=== PATIENT | male | born 1965 | race Caucasian/White ===

== ENCOUNTER → 2016-12-20 | Outpatient (CLI) | payer MEDICARE, MEDICAID, OTHER ==
[2016-12-20 10:37] LABS: BASO % 0.5 % (0.0-1.0); EOS # 0.2 K/mm3 (0.0-0.50); EOS % 5.6 % (0.0-3.0); LYMPH # 0.9 K/mm3 (1.5-4.5); LYMPH % 22.9 % (24.0-44.0); MEAN CORPUSCULAR HEMOGLOBIN 23.8 pg (27.0-33.0); MEAN CORPUSCULAR HGB CONC 31.7 g/dl (32.0-36.5); MEAN CORPUSCULAR VOLUME 75.1 fl (80.0-96.0); MONO # 0.2 K/mm3 (0.0-0.8); MONO % 5.1 % (0.0-5.0); NEUTROPHILS # 2.4 K/mm3 (1.8-7.7); NEUTROPHILS % 62.7 % (36.0-66.0); RED CELL DISTRIBUTION WIDTH 15.5 % (11.5-14.5); WHITE BLOOD COUNT 3.9 K/mm3 (4.0-10.0)
[2016-12-20 11:00] LABS: ALBUMIN 3.6 GM/DL (3.2-5.2); ALBUMIN/GLOBULIN RATIO 1.29 (1.00-1.93); ALKALINE PHOSPHATASE 70 U/L (45-117); ALT/SGPT 23 U/L (12-78); ANION GAP 7 MEQ/L (8-16); AST/SGOT 12 U/L (15-37); BILIRUBIN,TOTAL 0.4 MG/DL (0.2-1.0); BLOOD UREA NITROGEN 17 MG/DL (7-18); CALCIUM LEVEL 8.1 MG/DL (8.5-10.1); CARBON DIOXIDE LEVEL 25 MEQ/L (21-32); CHLORIDE LEVEL 108 MEQ/L (98-107); CHOLESTEROL LEVEL 116 MG/DL (<200); CREATININE FOR GFR 0.82 MG/DL (0.70-1.30); FREE T4 1.24 NG/DL (0.76-1.46); GLOMERULAR FILTRATION RATE > 60.0 (>56); GLUCOSE, FASTING 118 MG/DL (70-105); POTASSIUM SERUM 4.1 MEQ/L (3.5-5.1); SODIUM LEVEL 140 MEQ/L (136-145); TOTAL PROTEIN 6.4 GM/DL (6.4-8.2); TRIGLYCERIDES LEVEL 86 MG/DL (<150)
== END ==
LOC: M LAB 09:20
PROVIDERS: ATTEND Nurse Practitioner Adult Health
DX: D53.9 Nutritional anemia, unspecified (principal); Z79.899 Other long term (current) drug therapy; D72.819 Decreased white blood cell count, unspecified; E55.9 Vitamin D deficiency, unspecified; E78.5 Hyperlipidemia, unspecified

== ENCOUNTER → 2017-04-08 | Outpatient (CLI) | payer MEDICARE, MEDICAID ==
[2017-04-08 11:12] LABS: BASO # 0.1 10^3/uL (0.0-0.2); BASO % 0.9 % (0.0-1.0); EOS # 0.4 10^3/uL (0.0-0.50); EOS % 7.2 % (0.0-3.0); IMMATURE GRANULOCYTE % 0.4 % (0-0); LYMPH # 1.3 10^3/uL (1.5-4.5); LYMPH % 23.9 % (24.0-44.0); MEAN CORPUSCULAR HEMOGLOBIN 24.6 pg (27.0-33.0); MEAN CORPUSCULAR HGB CONC 31.3 g/dl (32.0-36.5); MEAN CORPUSCULAR VOLUME 78.3 fl (80.0-96.0); MONO # 0.3 10^3/uL (0.0-0.8); MONO % 6.1 % (0.0-5.0); NEUTROPHILS # 3.3 10^3/uL (1.8-7.7); NEUTROPHILS % 61.5 % (36.0-66.0); PLATELET COUNT, AUTOMATED 211 10^3/uL (150-450); RED CELL DISTRIBUTION WIDTH 14.7 % (11.5-14.5); WHITE BLOOD COUNT 5.3 10^3/uL (4.0-10.0)
[2017-04-08 11:46] LABS: ALBUMIN 3.7 GM/DL (3.2-5.2); ALBUMIN/GLOBULIN RATIO 1.23 (1.00-1.93); ALKALINE PHOSPHATASE 68 U/L (45-117); ALT/SGPT 33 U/L (12-78); ANION GAP 6 MEQ/L (8-16); AST/SGOT 21 U/L (7-37); BILIRUBIN,TOTAL 0.3 MG/DL (0.2-1.0); BLOOD UREA NITROGEN 15 MG/DL (7-18); CALCIUM LEVEL 9.2 MG/DL (8.5-10.1); CARBON DIOXIDE LEVEL 29 MEQ/L (21-32); CHLORIDE LEVEL 105 MEQ/L (98-107); CHOLESTEROL LEVEL 144 MG/DL (<200); CREATININE FOR GFR 0.77 MG/DL (0.70-1.30); FREE T4 1.15 NG/DL (0.76-1.46); GLOMERULAR FILTRATION RATE > 60.0 (>56); GLUCOSE, FASTING 89 MG/DL (70-105); POTASSIUM SERUM 4.6 MEQ/L (3.5-5.1); SODIUM LEVEL 140 MEQ/L (136-145); TOTAL PROTEIN 6.7 GM/DL (6.4-8.2); TRIGLYCERIDES LEVEL 113 MG/DL (<150)
== END ==
LOC: M LAB 10:22
PROVIDERS: ATTEND Nurse Practitioner Adult Health
DX: E78.5 Hyperlipidemia, unspecified (principal); Z79.899 Other long term (current) drug therapy; E55.9 Vitamin D deficiency, unspecified; F39 Unspecified mood [affective] disorder; D72.819 Decreased white blood cell count, unspecified; D53.9 Nutritional anemia, unspecified

== ENCOUNTER → 2017-11-14 | Outpatient (CLI) | payer MEDICARE ==
[2017-11-14 10:10] LABS: BASO # 0.1 10^3/uL (0.0-0.2); BASO % 1.2 % (0.0-1.0); EOS # 0.3 10^3/uL (0.0-0.50); EOS % 6.3 % (0.0-3.0); HEMATOCRIT 32.1 % (42.0-52.0); HEMOGLOBIN 9.4 g/dl (13.5-17.5); IMMATURE GRANULOCYTE % 0.6 % (0-3.0); LYMPH # 0.9 10^3/uL (1.5-4.5); LYMPH % 18.1 % (24.0-44.0); MEAN CORPUSCULAR HEMOGLOBIN 20.8 pg (27.0-33.0); MEAN CORPUSCULAR HGB CONC 29.3 g/dl (32.0-36.5); MONO # 0.3 10^3/uL (0.0-0.8); MONO % 6.9 % (0.0-5.0); NEUTROPHILS # 3.3 10^3/uL (1.8-7.7); NEUTROPHILS % 66.9 % (36.0-66.0); PLATELET COUNT, AUTOMATED 197 10^3/uL (150-450); RED BLOOD COUNT 4.52 10^6/uL (4.30-6.10); RED CELL DISTRIBUTION WIDTH 16.1 % (11.5-14.5); WHITE BLOOD COUNT 4.9 10^3/uL (4.0-10.0)
[2017-11-14 10:40] LABS: ESTIMATED AVERAGE GLUCOSE 103 MG/DL (60-110); HEMOGLOBIN A1c 5.2 %
[2017-11-14 10:55] LABS: TOTAL 25(OH) VITAMIN D 44.6 NG/ML (30.0-100.0)
[2017-11-14 10:59] LABS: ALBUMIN 3.8 GM/DL (3.2-5.2); ALBUMIN/GLOBULIN RATIO 1.27 (1.00-1.93); ALKALINE PHOSPHATASE 67 U/L (45-117); ALT/SGPT 22 U/L (12-78); ANION GAP 8 MEQ/L (8-16); AST/SGOT 15 U/L (7-37); BILIRUBIN,TOTAL 0.3 MG/DL (0.2-1.0); BLOOD UREA NITROGEN 10 MG/DL (7-18); CALCIUM LEVEL 8.5 MG/DL (8.5-10.1); CARBON DIOXIDE LEVEL 29 MEQ/L (21-32); CHLORIDE LEVEL 105 MEQ/L (98-107); CHOLESTEROL LEVEL 116 MG/DL (<200); CHOLESTEROL RISK RATIO 2.761 (<5); FREE T4 1.22 NG/DL (0.76-1.46); GLOMERULAR FILTRATION RATE > 60.0 (>56); GLUCOSE, FASTING 102 MG/DL (70-100); HDL CHOLESTEROL 42 MG/DL (>40); LDL CHOLESTEROL 53.8 MG/DL (<100); NON-HDL-C 74 MG/DL; POTASSIUM SERUM 4.4 MEQ/L (3.5-5.1); SODIUM LEVEL 142 MEQ/L (136-145); TOTAL PROTEIN 6.8 GM/DL (6.4-8.2); TRIGLYCERIDES LEVEL 101 MG/DL (<150)
== END ==
LOC: M LAB 09:19
DX: E78.5 Hyperlipidemia, unspecified (principal); Z79.899 Other long term (current) drug therapy
CPT/HCPCS: 84443

== ENCOUNTER 2018-03-28 02:15 | Emergency (ER) | payer MEDICARE, MEDICAID | END 2018-03-28 03:49 | disposition home or self-care (01) | LOC: M ED 02:15 | DX: R29.6 Repeated falls (principal); F33.9 Major depressive disorder, recurrent, unspecified; Z88.5 Allergy status to narcotic agent; Z79.899 Other long term (current) drug therapy | CPT/HCPCS: 99284 ==

== ENCOUNTER 2018-04-06 20:01 | Emergency (ER) | payer MEDICARE, MEDICAID ==
[2018-04-06] MEDS: NORCO, ANEXSIA 5/325MG TABLET (HYDROcodone/ACETAMINOPHEN) PO (21:06)
== END 2018-04-06 22:09 | disposition home or self-care (01) ==
LOC: M ED 20:01
DX: M25.362 Other instability, left knee (principal)
CPT/HCPCS: 73564

== ENCOUNTER → 2018-04-10 | Outpatient (CLI) | payer MEDICARE, MEDICAID ==
[2018-04-10 11:26] LABS: BASO # 0.1 10^3/uL (0.0-0.2); EOS # 0.5 10^3/uL (0.0-0.50); EOS % 8.1 % (0.0-3.0); HEMATOCRIT 35.2 % (42.0-52.0); IMMATURE GRANULOCYTE % 0.3 % (0-3.0); LYMPH # 1.1 10^3/uL (1.5-4.5); LYMPH % 18.9 % (24.0-44.0); MEAN CORPUSCULAR HEMOGLOBIN 19.9 pg (27.0-33.0); MEAN CORPUSCULAR HGB CONC 28.4 g/dl (32.0-36.5); MONO # 0.5 10^3/uL (0.0-0.8); MONO % 7.7 % (0.0-5.0); NEUTROPHILS # 3.7 10^3/uL (1.8-7.7); PLATELET COUNT, AUTOMATED 194 10^3/uL (150-450); RED BLOOD COUNT 5.03 10^6/uL (4.30-6.10); WHITE BLOOD COUNT 5.8 10^3/uL (4.0-10.0)
[2018-04-10 14:26] LABS: ALBUMIN 3.8 GM/DL (3.2-5.2); ALBUMIN/GLOBULIN RATIO 1.31 (1.00-1.93); ALKALINE PHOSPHATASE 73 U/L (45-117); ALT/SGPT 31 U/L (12-78); ANION GAP 4 MEQ/L (8-16); AST/SGOT 18 U/L (7-37); BILIRUBIN,TOTAL 0.3 MG/DL (0.2-1.0); BLOOD UREA NITROGEN 14 MG/DL (7-18); CARBON DIOXIDE LEVEL 29 MEQ/L (21-32); CHLORIDE LEVEL 106 MEQ/L (98-107); CHOLESTEROL LEVEL 122 MG/DL (<200); CHOLESTEROL RISK RATIO 2.711 (<5); CREATININE FOR GFR 0.89 MG/DL (0.70-1.30); FREE T4 1.09 NG/DL (0.76-1.46); GLOMERULAR FILTRATION RATE > 60.0 (>56); GLUCOSE, FASTING 94 MG/DL (70-100); HDL CHOLESTEROL 45 MG/DL (>40); LDL CHOLESTEROL 58 MG/DL (<100); NON-HDL-C 77 MG/DL; POTASSIUM SERUM 4.8 MEQ/L (3.5-5.1); PROSTATIC SPECIFIC AG MONITOR 7.8 NG/ML (< 4.0); SODIUM LEVEL 139 MEQ/L (136-145); TOTAL PROTEIN 6.7 GM/DL (6.4-8.2); TRIGLYCERIDES LEVEL 97 MG/DL (<150)
== END ==
LOC: M LAB 10:41
DX: R53.83 Other fatigue (principal); E78.2 Mixed hyperlipidemia
CPT/HCPCS: 84443

== ENCOUNTER 2018-05-19 07:26 | Emergency (ER) | payer MEDICARE, MEDICAID ==
[~2018-05-19] VITALS: Ht 185.4 cm; Wt 81.8 kg
[~2018-05-19 07:26] MED LIST: FLOM0.4C39 PO; GABA-1171 PO; GEMF600T5 PO; LAMI1TAB7 PO; NORCOTAB PO; PRAV80TA2 PO; TRAZ-163 PO
[2018-05-19] MEDS ORDERED: KETOROLAC 30 MG/ML VIAL (J1885) IV ONE (07:45)
--- NOTE | 2018-05-19 08:29 | REP ---
AP view of the pelvis: Single view. History: Injury in a fall. Findings: There are old post-traumatic changes in the left mohan pelvis, left sacrum, and left L5 transverse process. These findings are unchanged from prior radiographs of January 16, 2009. There are three metallic pins in the left hip also unchanged. No acute pelvic or sacral fracture is seen. Impression: Old post-traumatic changes on the left. No acute bony abnormality. Electronically Signed by Keven Qiu MD 05/19/2018 08:21 A
--- NOTE | 2018-05-19 08:41 | REP ---
Bilateral hip series: Four views. History: Injury in a fall. Findings: AP and frog-leg views of each hip are obtained. Comparison views are from July 08, 2014. Findings: There is old post-traumatic deformity involving the superior and inferior pubic rami on the left. The patient is status post screw plate fixation for femoral shaft fracture and there are three pins in the femoral neck on the left from previous trauma. No acute fracture is seen on the left. There is osteoarthritic spurring at the femoroacetabular articulation. There are accessory ossicles at the superior margin of the left hip joint. These findings are chronic. On the right, there is no evidence of hip fracture or hemipelvic fracture. Impression: Old post-traumatic changes on the left. No acute bony abnormality. Electronically Signed by Keven Qiu MD 05/19/2018 10:55 A
--- NOTE | 2018-05-19 08:42 | REP ---
Lumbar spine series: Five views. History: Injury in a fall. Findings: Five views of the lumbar spine show evidence of old healed left sacral and left transverse process L5 fractures unchanged from prior studies. Lumbar vertebral body heights are preserved. Alignment is normal. Disc spaces are maintained. No acute fracture is visible. Psoas margins are symmetric. SI joints are intact. Impression: Old left sacral and left L5 transverse process fractures. No acute bony abnormality. Electronically Signed by Keven Qiu MD 05/19/2018 10:55 A
[2018-05-19 08:49] LABS: BASO % 0.5 % (0.0-1.0); EOS # 0.5 10^3/uL (0.0-0.50); EOS % 6.1 % (0.0-3.0); HEMATOCRIT 30.7 % (42.0-52.0); HEMOGLOBIN 8.9 g/dl (13.5-17.5); LYMPH # 0.8 10^3/uL (1.5-4.5); LYMPH % 10.1 % (24.0-44.0); MONO # 0.4 10^3/uL (0.0-0.8); NEUTROPHILS # 6.4 10^3/uL (1.8-7.7); NEUTROPHILS % 78.1 % (36.0-66.0); PLATELET COUNT, AUTOMATED 147 10^3/uL (150-450); RED BLOOD COUNT 4.45 10^6/uL (4.30-6.10); WHITE BLOOD COUNT 8.1 10^3/uL (4.0-10.0)
[2018-05-19] MEDS ORDERED: LIDOCAINE 5% (LIDODERM) PATCH TD ONE (09:00)
[2018-05-19 09:06] LABS: BLOOD UREA NITROGEN 13 MG/DL (7-18); CALCIUM LEVEL 8.3 MG/DL (8.5-10.1); CARBON DIOXIDE LEVEL 26 MEQ/L (21-32); CHLORIDE LEVEL 109 MEQ/L (98-107); CREATININE FOR GFR 0.76 MG/DL (0.70-1.30); GLOMERULAR FILTRATION RATE > 60.0 (>56); GLUCOSE, FASTING 90 MG/DL (70-100); SODIUM LEVEL 141 MEQ/L (136-145)
[2018-05-19] MEDS ORDERED: NS 500 ML IV ONE (09:15)
[2018-05-19] MEDS ORDERED: ISOVUE-370 76% 100ML VIAL (Q9967) As Ordered ONE (09:15)
--- NOTE | 2018-05-19 09:45 | REP ---
CT Head without contrast HISTORY: Injury COMPARISON: Comparison 02/01/2015 Areas of decreased attenuation are present in the frontal lobes. There is dilatation of the overlying cortical sulci and anterior horns of the lateral ventricles. This represents encephalomalacia. Areas of decreased attenuation are present in the periventricular white matter. This represents small-vessel ischemic disease. There is no intraparenchymal hemorrhage, acute infarct, mass or midline shift. The ventricular system and cortical sulci as well as subarachnoid space in the posterior fossa are dilated consistent with mild volume loss. There is no extra cerebral collection. There is no fracture. Mucosal thickening is present in the ethmoid sinuses. IMPRESSION: 1. Bilateral frontal lobe encephalomalacia. 2. Small vessel ischemic disease. 3. Mild volume loss. Electronically Signed by Savage Whalen MD 05/19/2018 09:35 A
[2018-05-19 09:48] LABS: PROTHROMBIN TIME 13.3 SECONDS (12.1-14.4)
[2018-05-19 09:49] LABS: PARTIAL THROMBOPLASTIN TIME 27.2 SECONDS (25.4-37.6)
--- NOTE | 2018-05-19 09:51 | REP ---
CT cervical spine without contrast HISTORY: Injury COMPARISON: 09/15/2013 There is no acute fracture or subluxation. Disc bulges are present in the C3-4 through C5-6 levels. A disc bulge with associated osteophyte formation is present at the C6-7 level. There is minimal narrowing of the spinal canal. Uncinate process and/or facet hypertrophy are present at the C4-5 and C6-7 levels. These findings produce minimal to moderate narrowing of the neural foramina. The C4-5 and C6-7 intervertebral discs are decreased in height consistent with disc degeneration. Several small collections of air present in the subcutaneous tissues. IMPRESSION: 1. There is no acute fracture or subluxation. 2. There is cervical spondylosis at the C3-4 through C6-7 levels. 3. There are small scattered collections of air in the subcutaneous tissues. Electronically Signed by Savage Whalen MD 05/19/2018 09:42 A
[2018-05-19 09:52] LABS: ALBUMIN 3.3 GM/DL (3.2-5.2); BILIRUBIN,DIRECT 0.1 MG/DL (0.0-0.2); BILIRUBIN,TOTAL 0.3 MG/DL (0.2-1.0); TOTAL PROTEIN 5.8 GM/DL (6.4-8.2)
--- NOTE | 2018-05-19 10:06 | REP ---
CT ABDOMEN AND PELVIS WITH IV BUT WITHOUT ORAL CONTRAST: HISTORY: Rule out retroperitoneal bleed. No comparison CT study. CT CONTRAST DOSE: 100 mL of intravenous Isovue [address] FINDINGS: Preliminary digital acidizer water well radiograph demonstrates metallic pins in the left hip and old post-traumatic deformity of the left pelvis. There are patchy interstitial and fibrotic changes in the lung bases bilaterally. No definite infiltrate. A sliding type hiatal hernia is seen. Normal adrenal glands are observed. No pancreatic abnormality is noted. The gallbladder is small and contracted. No stone is seen by CT. There are granulomatous calcifications in the spleen. The liver and spleen are normal in size and homogeneous in texture. The kidneys enhance symmetrically and are morphologically intact. There is a tiny intrarenal calculus in the lower pole of the right kidney 2 mm. There is a similar size, 2 mm calcification at the upper pole on the left. No hydronephrosis seen. No retroperitoneal mass or adenopathy is observed. Normal appendix is seen. There is no evidence of intra-abdominal or retroperitoneal hematoma. There is left colonic diverticulosis without CT evidence of diverticulitis. Prostate and seminal vesicles are unremarkable. Urinary bladder has an intact appearance. No abdominal wall defect is seen. Old post-traumatic changes are noted in the left sacrum, left superior, and left inferior pubic rami as seen on the radiographs. There is osteoarthritis of the left hip. No acute fracture is seen. IMPRESSION: 1. Bilateral intrarenal nephrolithiasis without hydronephrosis. 2. No evidence of intra-abdominal or retroperitoneal hematoma. 3. Old post-traumatic deformity of the left pelvis and lumbosacral junction. 4. No acute intra-abdominal abnormality. Electronically Signed by Keven Qiu MD 05/19/2018 10:58 A
[2018-05-19 11:00] VITALS: BP 111/71
[2018-05-19] MEDS ORDERED: CYCL5TAB PO (12:27)
[2018-05-19] MEDS ORDERED: LIDO5DIS41 TOP (12:27)
[2018-05-19] MEDS ORDERED: **NOTE PATIENT COMMENT** MISC XX SCH (21:00)
== END 2018-05-19 12:40 | disposition home or self-care (01) ==
LOC: EDBD 07:26 → M ED 07:26
DX: M54.9 Dorsalgia, unspecified (principal); W19.XXXA Unspecified fall, initial encounter; Y92.009 Unspecified place in unspecified non-institutional (private) residence as the place of occurrence of the external cause; I25.2 Old myocardial infarction
CPT/HCPCS: 70450; 72110; 72125; 72170; 73502; 74177; 80048; 80076; 83690; 85025; 85610; 85730; 86850; 86870; 86900; 86901; 96374; 99284; J1885; Q9967

== ENCOUNTER → 2018-10-22 | Outpatient (CLI) | payer MEDICARE, MEDICAID ==
[~2018-10-22] MED LIST changes: +CYCL5TAB PO; +HYDR-3715 PO; +LIDO5DIS41 TOP; -NORCOTAB PO
[2018-10-22 10:40] LABS: BASO % 0.5 % (0.0-1.0); EOS # 0.4 10^3/uL (0.0-0.50); EOS % 4.1 % (0.0-3.0); HEMATOCRIT 31.3 % (42.0-52.0); HEMOGLOBIN 8.8 g/dl (13.5-17.5); LYMPH % 11.4 % (24.0-44.0); MEAN CORPUSCULAR HEMOGLOBIN 19.1 pg (27.0-33.0); MEAN CORPUSCULAR HGB CONC 28.1 g/dl (32.0-36.5); MONO # 0.4 10^3/uL (0.0-0.8); MONO % 4.9 % (0.0-5.0); NEUTROPHILS # 6.9 10^3/uL (1.8-7.7); NEUTROPHILS % 78.6 % (36.0-66.0); PLATELET COUNT, AUTOMATED 249 10^3/uL (150-450); WHITE BLOOD COUNT 8.8 10^3/uL (4.0-10.0)
[2018-10-22 11:12] LABS: ALBUMIN 3.6 GM/DL (3.2-5.2); ALT/SGPT 23 U/L (12-78); BILIRUBIN,TOTAL 0.3 MG/DL (0.2-1.0); BLOOD UREA NITROGEN 13 MG/DL (7-18); CALCIUM LEVEL 9.8 MG/DL (8.5-10.1); CARBON DIOXIDE LEVEL 29 MEQ/L (21-32); CHLORIDE LEVEL 106 MEQ/L (98-107); CHOLESTEROL LEVEL 142 MG/DL (<200); CHOLESTEROL RISK RATIO 2.958 (<5); CREATININE FOR GFR 0.97 MG/DL (0.70-1.30); FREE T4 1.16 NG/DL (0.76-1.46); GLOMERULAR FILTRATION RATE > 60.0 (>56); GLUCOSE, FASTING 121 MG/DL (70-100); HDL CHOLESTEROL 48 MG/DL (>40); IRON (FE) 16 UG/DL (65-175); LDL CHOLESTEROL 75 MG/DL (<100); NON-HDL-C 94 MG/DL; PERCENT SATURATION 3.4 % (19.7-50.0); SODIUM LEVEL 142 MEQ/L (136-145); THYROID STIMULATING HORMONE 0.805 uIU/ML (0.358-3.740); TOTAL IRON BINDING CAPACITY 465 UG/DL (250-450); TOTAL PROTEIN 7.1 GM/DL (6.4-8.2); TRIGLYCERIDES LEVEL 96 MG/DL (<150)
[2018-10-22 11:17] LABS: FOLATE 16.4 NG/ML
[2018-10-22 11:24] LABS: VITAMIN B12 LEVEL 537 PG/ML
== END ==
LOC: M LAB 09:59
PROVIDERS: ATTEND Physician Assistant Medical
DX: R53.83 Other fatigue (principal); I10 Essential (primary) hypertension; E78.2 Mixed hyperlipidemia; D64.9 Anemia, unspecified

== ENCOUNTER → 2018-12-01 | Outpatient (REF) | payer MEDICARE | LOC: M SMT 17:15 | PROVIDERS: ATTEND Nurse Practitioner Family | DX: R97.20 Elevated prostate specific antigen [PSA] (principal); N40.1 Benign prostatic hyperplasia with lower urinary tract symptoms | CPT/HCPCS: 87086; G0463 ==

== ENCOUNTER → 2018-12-16 | Outpatient (CLI) | payer MEDICARE ==
--- NOTE | 2018-12-16 14:37 | REP ---
TRANSRECTAL ULTRASOUND, PROSTATE WITH ULTRASOUND GUIDANCE FOR PROSTATE BIOPSY: Transrectal ultrasound of the prostate is performed. The size of the gland is 4.4 x 2.6 x 4.4 cm for a total volume of 27.0 mL. Echotexture is heterogeneous with scattered cysts in calcifications. Seminal vesicles are symmetrical. Ultrasound guidance was provided for Dr. Moran who performed ultrasound guided biopsy of the prostate. Electronically Signed by Umesh Pereira MD 12/17/2018 10:38 A
== END ==
LOC: M SMT PRO 08:25
PROVIDERS: ATTEND Urology
DX: C61 Malignant neoplasm of prostate (principal)
CPT/HCPCS: 76872; 76942; G0416

== ENCOUNTER → 2019-01-14 | Outpatient (CLI) | payer MEDICARE ==
--- NOTE | 2019-01-14 11:29 | REP ---
Clinical: Preoperative assessment. Technique: PA and lateral. Comparison: 11/21/2012. Findings: Mediastinum and cardiac silhouette are normal. Lung babcock demonstrate chronic-appearing interstitial changes. No focal consolidation, effusion, or pneumothorax. Airway is patent and midline. Skeletal structures are intact and grossly normal. Impression: Chronic stable changes. No acute cardiopulmonary process. Electronically Signed by Trent Holt MD 01/14/2019 11:20 A
[2019-01-14 11:43] LABS: HEMATOCRIT 28.2 % (42.0-52.0); HEMOGLOBIN 7.7 g/dl (13.5-17.5); MEAN CORPUSCULAR HEMOGLOBIN 18.2 pg (27.0-33.0); MEAN CORPUSCULAR HGB CONC 27.3 g/dl (32.0-36.5); MEAN CORPUSCULAR VOLUME 66.5 fl (80.0-96.0); PLATELET COUNT, AUTOMATED 263 10^3/uL (150-450); RED BLOOD COUNT 4.24 10^6/uL (4.30-6.10); WHITE BLOOD COUNT 6.7 10^3/uL (4.0-10.0)
[2019-01-14 11:52] LABS: INR 1.03; PROTHROMBIN TIME 13.2 SECONDS (11.8-14.0)
[2019-01-14 12:11] LABS: BLOOD UREA NITROGEN 15 MG/DL (7-18); CALCIUM LEVEL 9.2 MG/DL (8.5-10.1); CARBON DIOXIDE LEVEL 28 MEQ/L (21-32); CHLORIDE LEVEL 104 MEQ/L (98-107); CREATININE FOR GFR 1.02 MG/DL (0.70-1.30); GLOMERULAR FILTRATION RATE > 60.0 (>56); GLUCOSE, FASTING 113 MG/DL (70-100); SODIUM LEVEL 138 MEQ/L (136-145)
== END ==
LOC: M LAB 10:33
PROVIDERS: ATTEND Urology
DX: Z01.818 Encounter for other preprocedural examination (principal); C61 Malignant neoplasm of prostate

== ENCOUNTER 2019-01-16 09:31 | Outpatient (CLI) | payer MEDICARE ==
[2019-01-16] VITALS (9 sets, daily range): BP systolic 125–139; BP diastolic 64–90
[~2019-01-16] VITALS: Ht 172.7 cm; Wt 86.4 kg
[2019-01-16] MEDS ORDERED: ACETAMINOPHEN TAB 650MG DOSE (2X325MG) PO ONE (10:00)
== END 2019-01-16 17:00 | disposition home or self-care (01) ==
LOC: M INFU 09:31
PROVIDERS: ATTEND Nurse Practitioner Family
DX: D64.9 Anemia, unspecified (principal); Z88.5 Allergy status to narcotic agent
CPT/HCPCS: 36415; 36430; 85027; 86850; 86870; 86900; 86901; 86920; G0463; P9016

== ENCOUNTER → 2019-01-16 | Outpatient (CLI) | payer MEDICARE ==
[2019-01-16 10:21] LABS: HEMATOCRIT 28.6 % (42.0-52.0); HEMOGLOBIN 7.8 g/dl (13.5-17.5); MEAN CORPUSCULAR HEMOGLOBIN 18.4 pg (27.0-33.0); MEAN CORPUSCULAR HGB CONC 27.3 g/dl (32.0-36.5); MEAN CORPUSCULAR VOLUME 67.3 fl (80.0-96.0); PLATELET COUNT, AUTOMATED 258 10^3/uL (150-450); RED BLOOD COUNT 4.25 10^6/uL (4.30-6.10); WHITE BLOOD COUNT 6.7 10^3/uL (4.0-10.0)
== END ==
LOC: M LAB 09:29
PROVIDERS: ATTEND Nurse Practitioner Family
DX: D64.9 Anemia, unspecified (principal)

== ENCOUNTER → 2019-01-19 | Outpatient (CLI) | payer MEDICARE ==
[2019-01-19 13:58] LABS: HEMATOCRIT 36.2 % (42.0-52.0); MEAN CORPUSCULAR HEMOGLOBIN 19.4 pg (27.0-33.0); MEAN CORPUSCULAR HGB CONC 27.6 g/dl (32.0-36.5); MEAN CORPUSCULAR VOLUME 70.2 fl (80.0-96.0); PLATELET COUNT, AUTOMATED 271 10^3/uL (150-450); RED BLOOD COUNT 5.16 10^6/uL (4.30-6.10); WHITE BLOOD COUNT 5.8 10^3/uL (4.0-10.0)
== END ==
LOC: M LAB 13:19
PROVIDERS: ATTEND Nurse Practitioner Family
DX: D64.9 Anemia, unspecified (principal)

== ENCOUNTER 2019-01-21 08:30 | Inpatient (IN) | payer MEDICARE, MEDICAID ==
[~2019-01-21] VITALS: Ht 182.9 cm; Wt 83.4 kg
[2019-03-03] MEDS ORDERED: OMEP-218 PO (11:04)
[2019-03-03 11:05] VITALS: BP 122/81
[2019-03-12] MEDS ORDERED: LIDOCAINE 1% MDV 20ML VIAL SQ PRN (06:00)
[2019-03-12] MEDS ORDERED: BUPIVACAINE HCL 0.25% 30 ML VIAL As Ordered ONE (06:50)
[2019-03-12] MEDS ORDERED: LIDOCAINE 1% SDV INJ 30 ML VIAL As Ordered ONE (06:50)
[2019-03-12] MEDS ORDERED: ceFAZolin SOD 2 GM in IV 1 EA IV ONE (07:00)
[2019-03-12] MEDS ORDERED: LR 1,000 ML IV ONE (07:00)
[2019-03-12] MEDS ORDERED: HEPARIN SOD (PORCINE) 5000 UNITS/ML VIAL SQ ONE (07:00)
[2019-03-12] MEDS ORDERED: ONDANSETRON 4MG/2ML VIAL (J2405) As Ordered ONE (08:01)
[2019-03-12] MEDS ORDERED: LIDOCAINE 2% INJ 100 MG/5 ML SDV (FOR ANES.) As Ordered ONE ×5 (08:01→12:25)
[2019-03-12] MEDS ORDERED: PROPOFOL 200 MG/20 ML VIAL As Ordered ONE ×2 (08:01→08:13)
[2019-03-12] MEDS ORDERED: dexameTHASONE 4 MG/ML 1ML VIAL (J1100) As Ordered ONE (08:01)
[2019-03-12] MEDS ORDERED: MIDAZOLAM INJ 2 MG/2 ML VIAL (J2250) As Ordered ONE (08:02)
[2019-03-12] MEDS ORDERED: fentaNYL 250 MCG/5 ML INJECTION (J3010) As Ordered ONE (08:02)
[2019-03-12] MEDS ORDERED: ROCURONIUM BROMIDE 50 MG/5 ML VIAL As Ordered ONE (08:13)
[2019-03-12] MEDS ORDERED: KETAMINE HCL 200 MG/20 ML VIAL As Ordered ONE (08:40)
[2019-03-12] MEDS ORDERED: PERCOCET 5MG/325MG TAB PO PRN (08:45)
[2019-03-12] MEDS ORDERED: ACETAMINOPHEN TAB 650MG DOSE (2X325MG) PO PRN (08:45)
[2019-03-12] MEDS ORDERED: ONDANSETRON 4MG/2ML VIAL (J2405) IV PRN ×2 (08:45→13:45)
[2019-03-12] MEDS ORDERED: MORPHINE 2 MG/ML 1ML VIAL (J2270) IV PRN (08:45)
[2019-03-12] MEDS: HEPARIN SOD (PORCINE) 5000 UNITS/ML VIAL SC SCH ×3 (08:53→21:46)
[2019-03-12] MEDS ORDERED: NS 1,000 ML IV SCH (09:00)
[2019-03-12] MEDS ORDERED: SUCCINYLCHOLINE 100 MG/5 ML SYRINGE (J0330) As Ordered ONE (10:01)
[2019-03-12] MEDS ORDERED: HYDROmorphone HCL 2 MG/ML 1ML VIAL (J1170) As Ordered ONE (10:16)
[2019-03-12] MEDS ORDERED: SUGAMMADEX SODIUM 500 MG/5 ML VIAL (BRIDION) As Ordered ONE (10:23)
[2019-03-12] MEDS ORDERED: ACETAMINOPHEN 1000MG 100ML IV BTL (OFIRMEV) (J0131 PER 10MG) As Ordered ONE (10:32)
[2019-03-12] MEDS ORDERED: METHOCARBAMOL 1,000 MG/10 ML VIAL (J2800) As Ordered ONE (10:34)
[2019-03-12] MEDS ORDERED: ceFAZolin 2 GM/D5W 50 ML IV BAG (J0690 PER 500MG) As Ordered ONE (12:07)
[2019-03-12] MEDS ORDERED: fentaNYL 100 MCG/2 ML INJECTION (J3010) As Ordered ONE (13:44)
[2019-03-12] MEDS ORDERED: LR 1,000 ML IV SCH (13:45)
[2019-03-12] MEDS ORDERED: fentaNYL 100 MCG/2 ML INJECTION (J3010) IV PRN (13:45)
[2019-03-12] MEDS: HYDROMORPHONE HCL 0.5 MG/ 0.5 ML SYRINGE (J1170 PER 1) IV PRN ×4 (14:05→14:30)
[2019-03-12 14:09] LABS: HEMATOCRIT 32.3 % (42.0-52.0); MEAN CORPUSCULAR HEMOGLOBIN 19.6 pg (27.0-33.0); MEAN CORPUSCULAR HGB CONC 27.9 g/dl (32.0-36.5); MEAN CORPUSCULAR VOLUME 70.2 fl (80.0-96.0); PLATELET COUNT, AUTOMATED 224 10^3/uL (150-450); WHITE BLOOD COUNT 6.1 10^3/uL (4.0-10.0)
[2019-03-12 14:24] LABS: BLOOD UREA NITROGEN 12 MG/DL (7-18); CALCIUM LEVEL 8.7 MG/DL (8.5-10.1); CARBON DIOXIDE LEVEL 29 MEQ/L (21-32); CHLORIDE LEVEL 106 MEQ/L (98-107); CREATININE FOR GFR 0.94 MG/DL (0.70-1.30); GLOMERULAR FILTRATION RATE > 60.0 (>56); GLUCOSE, FASTING 111 MG/DL (70-100); POTASSIUM SERUM 4.3 MEQ/L (3.5-5.1); SODIUM LEVEL 138 MEQ/L (136-145)
[2019-03-12] MEDS: PERCOCET 5MG/325MG TAB PO PRN ×4 (14:24→21:47)
[2019-03-12 16:18] VITALS: BP 104/75
[2019-03-12 16:38] VITALS: BP 108/74
[2019-03-12 17:30] VITALS: BP 111/73
[2019-03-12] MEDS: OMEPRAZOLE 20 MG CAP PO SCH (17:31)
[2019-03-12] MEDS: lamoTRIgine 100MG TAB PO SCH ×2 (17:31→21:46)
[2019-03-12] MEDS: GABAPENTIN 100 MG CAP PO SCH ×2 (17:31→21:46)
[2019-03-12] MEDS: DOCUSATE SODIUM 100 MG CAP PO SCH ×2 (17:32→21:46)
[2019-03-12] MEDS: ceFAZolin SOD 1 GM in D5W MINI-BAG PLUS 50 ML IV SCH (17:50)
[2019-03-12] MEDS ORDERED: SULF1TAB93 PO (18:11)
[2019-03-12] MEDS ORDERED: PERCOCET PO (18:11)
[2019-03-12] MEDS ORDERED: DOCU100C16 PO (18:11)
[2019-03-12 18:15] VITALS: BP 109/71
[2019-03-12 21:18] VITALS: BP 112/69
[2019-03-12] MEDS: PRAVASTATIN 20 MG TAB PO SCH (21:46)
[2019-03-12] MEDS: traZODone 100 MG TAB PO SCH (21:46)
[2019-03-13] VITALS (15 sets, daily range): BP systolic 112–148; BP diastolic 69–87; O2SAT 94–100
[2019-03-13] MEDS: ceFAZolin SOD 1 GM in D5W MINI-BAG PLUS 50 ML IV SCH (00:09)
[2019-03-13] MEDS: diphenhydrAMINE 50 MG CAP PO PRN (00:55)
[2019-03-13] MEDS: PERCOCET 5MG/325MG TAB PO PRN ×3 (03:21→15:08)
[2019-03-13] MEDS: HEPARIN SOD (PORCINE) 5000 UNITS/ML VIAL SC SCH ×3 (06:40→20:44)
[2019-03-13 07:01] LABS: HEMATOCRIT 28.2 % (42.0-52.0); HEMOGLOBIN 7.9 g/dl (13.5-17.5); MEAN CORPUSCULAR HEMOGLOBIN 19.8 pg (27.0-33.0); MEAN CORPUSCULAR VOLUME 70.9 fl (80.0-96.0); PLATELET COUNT, AUTOMATED 215 10^3/uL (150-450); RED BLOOD COUNT 3.98 10^6/uL (4.30-6.10); WHITE BLOOD COUNT 7.3 10^3/uL (4.0-10.0)
[2019-03-13 07:19] LABS: BLOOD UREA NITROGEN 15 MG/DL (7-18); CALCIUM LEVEL 7.9 MG/DL (8.5-10.1); CARBON DIOXIDE LEVEL 32 MEQ/L (21-32); CHLORIDE LEVEL 105 MEQ/L (98-107); GLOMERULAR FILTRATION RATE > 60.0 (>56); GLUCOSE, FASTING 101 MG/DL (70-100); POTASSIUM SERUM 3.6 MEQ/L (3.5-5.1); SODIUM LEVEL 142 MEQ/L (136-145)
[2019-03-13] MEDS: lamoTRIgine 100MG TAB PO SCH ×2 (10:39→20:45)
[2019-03-13] MEDS: GABAPENTIN 100 MG CAP PO SCH ×2 (10:39→20:44)
[2019-03-13] MEDS: BACTRIM 160MG/800MG DS TAB PO SCH (10:39)
[2019-03-13] MEDS: DOCUSATE SODIUM 100 MG CAP PO SCH ×2 (10:40→20:45)
[2019-03-13] MEDS: OMEPRAZOLE 20 MG CAP PO SCH (10:40)
--- NOTE | 2019-03-13 12:54 | IPNPDOC ---
Text Note Date of Service The patient was seen on 03/13/19. NOTE The patient is postop day #1 robotic-assisted laparoscopic prostatectomy. He is feeling quite worn down today and his H&H is 7.9/28.2 and his hemoglobin preop was 9.1. He does have chronic anemia but at this point would like to undergo a transfusion. His Madden catheter is draining well. He has some mild right lower quadrant pain but otherwise feels well. He has been passing gas well. Physical exam: This a well-developed well-nourished gentleman and he is alert and oriented 3. His heart is regular in his lungs are clear. He has no CVA tenderness. His wounds are healing well. He has some mild right lower quadrant tenderness but no rebound or guarding. His catheter is draining clear urine. His extremities show no cyanosis clubbing or edema. Impression: -Postop day #1 robotic-assisted upper scopic prostatectomy and BPLND by Dr. Moran for Ricky 7 prostate cancer -Post operative and perioperative anemia requiring a blood transfusion preoperatively. Plan: -Continue Madden catheter for a minimum of 7-10 days -Transfused 2 units of packed red blood cells today -Advance diet as tolerated -Recommend ambulation today -Plan probable discharge tomorrow VS,Baylee, I+O VS, Baylee, I+O Laboratory Tests 03/12/19 13:48 03/13/19 06:42 Vital Signs Date Time Temp Pulse Resp B/P (MAP) Pulse Ox O2 Delivery O2 Flow Rate FiO2 03/13/19 11:10 18 Room Air 03/13/19 06:45 98.0 74 112/69 (83) 95 03/13/19 03:44 2.0 I&O- Last 24 Hours up to 6 AM 03/13/19 06:00 Intake Total 3980 ml Output Total 4030 ml Balance -50 ml ASIM RIZZO MD Mar 13, 2019 12:54
[2019-03-13] MEDS: SIMETHICONE 80 MG CHEW TAB PO SCH ×2 (15:07→20:44)
[2019-03-13] MEDS: HYDROMORPHONE HCL 0.5 MG/ 0.5 ML SYRINGE (J1170 PER 1) IV PRN (17:20)
[2019-03-13] MEDS: PRAVASTATIN 20 MG TAB PO SCH (20:44)
[2019-03-13] MEDS: MOM 30ML SUSPENSION UDC PO PRN (20:44)
[2019-03-13] MEDS: traZODone 100 MG TAB PO SCH (20:45)
[2019-03-13] MEDS: zolPIDEM TARTRATE 5 MG TAB PO PRN (20:45)
[2019-03-14] MEDS: HYDROMORPHONE HCL 0.5 MG/ 0.5 ML SYRINGE (J1170 PER 1) IV PRN (01:52)
[2019-03-14] MEDS: SIMETHICONE 80 MG CHEW TAB PO SCH ×2 (02:56→08:00)
[2019-03-14] MEDS: MOM 30ML SUSPENSION UDC PO PRN ×2 (02:56→09:21)
[2019-03-14] MEDS: HEPARIN SOD (PORCINE) 5000 UNITS/ML VIAL SC SCH ×3 (05:34→22:15)
[2019-03-14] MEDS: PERCOCET 5MG/325MG TAB PO PRN (05:34)
[2019-03-14 06:00] VITALS: BP 140/83
[2019-03-14 06:40] LABS: HEMATOCRIT 37.1 % (42.0-52.0); MEAN CORPUSCULAR HGB CONC 29.6 g/dl (32.0-36.5); MEAN CORPUSCULAR VOLUME 70.7 fl (80.0-96.0); PLATELET COUNT, AUTOMATED 228 10^3/uL (150-450); RED BLOOD COUNT 5.25 10^6/uL (4.30-6.10); WHITE BLOOD COUNT 7.4 10^3/uL (4.0-10.0)
[2019-03-14 07:00] LABS: BLOOD UREA NITROGEN 11 MG/DL (7-18); CALCIUM LEVEL 9.4 MG/DL (8.5-10.1); CARBON DIOXIDE LEVEL 33 MEQ/L (21-32); CHLORIDE LEVEL 102 MEQ/L (98-107); CREATININE FOR GFR 0.79 MG/DL (0.70-1.30); GLOMERULAR FILTRATION RATE > 60.0 (>56); GLUCOSE, FASTING 104 MG/DL (70-100); POTASSIUM SERUM 3.5 MEQ/L (3.5-5.1); SODIUM LEVEL 140 MEQ/L (136-145)
[2019-03-14] MEDS: DOCUSATE SODIUM 100 MG CAP PO SCH (08:00)
[2019-03-14] MEDS: OMEPRAZOLE 20 MG CAP PO SCH (08:00)
[2019-03-14] MEDS: GABAPENTIN 100 MG CAP PO SCH ×2 (08:00→21:00)
[2019-03-14] MEDS: lamoTRIgine 100MG TAB PO SCH ×2 (08:00→21:00)
[2019-03-14] MEDS: BACTRIM 160MG/800MG DS TAB PO SCH (08:01)
[2019-03-14] MEDS ORDERED: ONDANSETRON 4MG/2ML VIAL (J2405) IV PRN (10:00)
[2019-03-14 10:30] VITALS: BP 144/85
--- NOTE | 2019-03-14 10:36 | CR.PDOC ---
General Date of Consultation: Mar 14, 2019 Referring Provider: ASIM RIZZO MD Attending Physician: SONNY TEJEDA MD Consultation REASON FOR CONSULTATION/CHIEF COMPLAINT: Emergent consult for Tachycardia, shortness of breath, vomiting. HISTORY OF PRESENT ILLNESS: This is a 54 years old white male with past medical history of hyperlipidemia, alcohol abuse, major depression, cervical neck pain, hip pain, anxiety, GERD, vitamin D deficiency, erectile dysfunction, cystitis suddenly became tachycardic while he was on the WC trying to to defecate, later he vomited while he was in the bed and now complaining of anxiety and shortness of breath. Unable to obtain good history from patient secondary to his present medical status. Patient is a status post robotic laser prostatectomy postop day 1. ALLERGIES: Please see below. HOME MEDICATIONS: Please see below. PAST MEDICAL HISTORY: , Hyperlipidemia, alcohol abuse, major depression, neck pain, hip pain, anxiety, GERD, vitamin D deficiency, ED, cystitis, vocal cord paralysis, MIs, 2 years ago PAST SURGICAL HISTORY: head sx, ACL repair, bilateral ankle surgery, prostate biopsy FAMILY HISTORY: . Father at the age of 65 with heart attack and mother at 36 with suicide SOCIAL HISTORY: Patient lives alone Denies alcohol use and last 4 years . No history of drugs IVDA REVIEW OF SYSTEMS: CONSTITUTIONAL: Anxious. HEENT: . No head, eye pain. CARDIOVASCULAR: . No chest pain or palpitations. RESPIRATORY: Shortness of breath and , tachypnea. GENITOURINARY: Madden catheter in place. No obstruction. A urine. MUSCULOSKELETAL: No pain. GASTROINTESTINAL: Nausea, positive. SKIN: Within normal limits. NEUROLOGICAL: . No headache or weakness. PSYCHIATRIC: Anxiety. ENDOCRINE: noComplaints. HEMATOLOGIC/LYMPHATIC: No complaints. ALLERGIC/IMMUNOLOGIC: No complaints. PHYSICAL EXAMINATION: VITAL SIGNS: Please see below. GENERAL APPEARANCE: . She is very anxious, tachypneic and tachycardic. Unable to obtain history. HEENT: PERRLA, extraocular muscles intact. RESPIRATORY: Bilateral basal crackles, no rales, rhonchi. CARDIOVASCULAR: S1, S2, regular, no murmur, thrill or heave. ABDOMEN: , Soft, nontender, bowel sounds present. EXTREMITIES: No clubbing, cyanosis, edema. NEUROLOGICAL: . No focal motor sensory deficit. PSYCHIATRIC: Anxious. LABORATORY DATA: Please see below. ASSESSMENT/PLAN: This is 54 years old white male with past medical history of anxiety, alcohol abuse, but has been sober since last 4 years, hyperlipidemia, major depression, GERD, status post robotic radical prostatectomy postop day #1, while he was trying to defecate. He developed tachycardia and later on when he go to bed to the bed. He developed shortness of breath and followed by large amount of vomitus. Patient has a vocal cord paralysis and secondary to his anxiety status. I was unable to obtained good history. History was collected from a nursing staff. Patient medical records and some from patient himself. I only have a state EKG done which shows sinus tachycardia, nonspecific ST-T changes and no change from the previous EKG Consider patient is postop and he just received 2 units of PRBC yesterday and crackles are positive on exam. Cannot rule out volume overload causing pulmonary vascular congestion and other cardiac etiology But will also have today to rule out pulmonary embolus as patient is postop day 1 Also there is a possibility of aspiration pneumonia as patient has a large amount of vomiting before he developed shortness of breath and tachycardia Also would consider symptomatology secondary to vasovagal phenomena Patient has been sober since last 4 years, so doubt alcohol withdrawal at this point Patient will be transferred to PCU State. CBC, CMP, lipase, troponins 3. BNP lactic acid pro calcitonin PT/INR Status. Chest x-ray and flat upright of abdomen State. CTA of chest to rule out PE telemetry monitoring Oxygens supplement Lasix 40 mg IV Protonix 40 mg IV every 24 hours Nothing by mouth except meds Will follow-up on the pending workup and make changes to management accordingly Vital Signs/I&O Vital Signs Date Time Temp Pulse Resp B/P (MAP) Pulse Ox O2 Delivery O2 Flow Rate FiO2 03/14/19 06:15 17 03/14/19 06:00 98.7 83 140/83 (102) 96 Room Air 03/13/19 03:44 2.0 I&O- Last 24 Hours up to 6 AM 03/14/19 05:59 Intake Total 3760 ml Output Total 3110 ml Balance 650 ml Laboratory Data Labs 24H Laboratory Tests 2 03/14/19 06:12: Nucleated Red Blood Cells % (auto) 0.0, Anion Gap 5L, Glomerular Filtration Rate > 60.0, Calcium Level 9.4# CBC/BMP Laboratory Tests 03/14/19 06:12 Allergies Coded Allergies: Shrimp (Verified Allergy, Severe, anaphylaxis, 02/12/19) codeine (Verified Allergy, Intermediate, HIVES, 03/12/19) morphine (Verified Allergy, Intermediate, HIVES, 03/12/19) Home Medications Scheduled Docusate Sodium (Docusate Sodium) 100 Mg Capsule, 100 MG PO BID for 10 Days, #20 Gabapentin (Gabapentin) 100 Mg Capsule, 100 MG PO QAM, (Reported) Gabapentin (Gabapentin) 100 Mg Capsule, 100 MG PO QPM, (Reported) Gemfibrozil (Gemfibrozil) 600 Mg Tab, 600 MG PO BID, (Reported) Lamotrigine (Lamictal) 100 Mg Tab, 100 MG PO BID, (Reported) Omeprazole (Omeprazole) 20 Mg Capsule.dr, 20 MG PO DAILY, (Reported) Pravastatin Sodium (Pravastatin Sodium) 80 Mg Tab, 80 MG PO DAILY, (Reported) Sulfamethoxazole/Trimethoprim (Sulfamethoxazole-Tmp Ds Tablet) 1 Each Tablet, 1 TAB PO DAILY for 10 Days, #10 Trazodone HCl (Trazodone HCl) 100 Mg Tab, 200 MG PO QHS, (Reported) Scheduled PRN Oxycodone/Acetaminophen (Oxycodone-Acetaminophen 5-325) 1 Each Tablet, 1-2 TAB PO Q6HP PRN for MODERATE/SEVERE PAIN (PS 5-10), #30 SONNY TEJEDA MD Mar 14, 2019 10:36
[2019-03-14 10:50] LABS: HEMATOCRIT 44.7 % (42.0-52.0); MEAN CORPUSCULAR HEMOGLOBIN 20.8 pg (27.0-33.0); MEAN CORPUSCULAR HGB CONC 29.1 g/dl (32.0-36.5); MEAN CORPUSCULAR VOLUME 71.5 fl (80.0-96.0); PLATELET COUNT, AUTOMATED 278 10^3/uL (150-450); RED BLOOD COUNT 6.25 10^6/uL (4.30-6.10); WHITE BLOOD COUNT 11.5 10^3/uL (4.0-10.0)
[2019-03-14] MEDS ORDERED: FUROSEMIDE 40 MG/4 ML VIAL (J1940) IV ONE (11:00)
[2019-03-14 11:02] LABS: INR 1.03; PROTHROMBIN TIME 13.2 SECONDS (11.8-14.0)
[2019-03-14 11:04] LABS: D-DIMER QUANT 2360.91 ng/ml (<500)
[2019-03-14 11:08] LABS: ALBUMIN 3.3 GM/DL (3.2-5.2); ALT/SGPT 16 U/L (12-78); BILIRUBIN,TOTAL 0.8 MG/DL (0.2-1.0); BLOOD UREA NITROGEN 14 MG/DL (7-18); CALCIUM LEVEL 9.4 MG/DL (8.5-10.1); CARBON DIOXIDE LEVEL 31 MEQ/L (21-32); CHLORIDE LEVEL 100 MEQ/L (98-107); GLOMERULAR FILTRATION RATE > 60.0 (>56); GLUCOSE, FASTING 134 MG/DL (70-100); LIPASE 200 U/L (73-393); NT-PRO BNP 178 PG/ML (<125); POTASSIUM SERUM 3.2 MEQ/L (3.5-5.1); SODIUM LEVEL 140 MEQ/L (136-145); TOTAL PROTEIN 7.4 GM/DL (6.4-8.2); TROPONIN I < 0.02 NG/ML (< 0.10)
[2019-03-14] MEDS ORDERED: ISOVUE-370 76% 100ML VIAL (Q9967) As Ordered ONE (11:49)
--- NOTE | 2019-03-14 12:07 | REP ---
Clinical: Shortness of breath and abdominal distension. Technique: Supine views of the chest and abdomen along with cross-table lateral decubitus view of the abdomen. Findings: Diffuse distended air-filled small and large bowel consistent with obstruction versus ileus. No definite free air to suggest perforation. A drainage catheter is identified within the pelvis. Skeletal structures are intact. Impression: Diffusely distended air-filled small and large bowel. Differential diagnosis includes obstruction and ileus. Electronically Signed by Trent Holt MD 03/14/2019 11:59 A
[2019-03-14 12:13] VITALS: BP 147/87
[2019-03-14 12:16] LABS: MAGNESIUM LEVEL 2.8 MG/DL (1.8-2.4)
--- NOTE | 2019-03-14 12:31 | REP ---
Clinical: Shortness of breath with tachycardia and to give p.m. Technique: Axial contrast enhanced images from the thoracic inlet to the upper abdomen using pulmonary embolus protocol with multiplanar re-formations. 100 ml Isovue 370 intravenous contrast material administered without complication. Findings: No evidence for pulmonary embolus. Thoracic aorta without aneurysm or dissection. Lower lobe consolidations (right greater than left) along with trace right upper lobe air space disease is consistent with atelectasis and multifocal pneumonia. No significant effusion. No pneumothorax. No cardiomegaly or pericardial effusion. No significant adenopathy. The esophagus is diffusely distended and fluid-filled extending into the fluid filled stomach in the visualized upper abdomen which demonstrates dilated air filled large bowel. There is a microscopic focus of free air along the right anterior abdomen concerning for bowel perforation. Impression: 1. No pulmonary embolus. 2. Microscopic free air below the diaphragm suggests perforation and correlation with possible surgical history or abdominal findings recommended. 3. Multi focal consolidations compatible with acute pneumonia / atelectasis (right greater than left). Electronically Signed by Trent Holt MD 03/14/2019 12:23 P
[2019-03-14] MEDS: KCL 40MEQ in NS 1000ML 1,000 ML IV SCH (12:38)
[2019-03-14 13:08] LABS: APPEARANCE, URINE CLEAR (CLEAR); BACTERIA, URINE AUTO NEGATIVE (NEGATIVE); BILIRUBIN, URINE AUTO NEGATIVE (NEGATIVE); BLOOD, URINE BLOOD 3+ (NEGATIVE); COLOR, URINE STRAW (YELLOW); GLUCOSE, URINE (UA) AUTO NEGATIVE (NEGATIVE); KETONE, URINE AUTO NEGATIVE (NEGATIVE); LEUKOCYTE ESTERASE, URINE AUTO TRACE (NEGATIVE); MUCUS, URINE SMALL (NEGATIVE); NITRITE, URINE AUTO NEGATIVE (NEGATIVE); PROTEIN, URINE AUTO NEGATIVE (NEGATIVE); RBC, URINE AUTO TNTC /HPF (0-3); SPECIFIC GRAVITY URINE AUTO 1.019 (1.002-1.035); SQUAMOUS EPITHELIAL CELL UR AU 0 /HPF (0-6); UROBILINOGEN, URINE AUTO 0.2 mg/dL (0.0-2.0); WBC, URINE AUTO 3 /HPF (0-3)
[2019-03-14] MEDS ORDERED: PROMETHAZINE INJ 25 MG/ML VIAL (J2550) IV PRN (13:15)
--- NOTE | 2019-03-14 13:40 | IPNPDOC ---
Text Note Date of Service The patient was seen on 03/14/19. NOTE Hector is postop day #2 robotic-assisted laparoscopic prostatectomy by Dr. Avtar mercado. This morning he began complaining of shortness of breath and was found to have an elevated heart rate of 145. A hospitalist consult was called and he was transferred to PCU. A CT angiogram showed no evidence of a pulmonary embolus but this did show multiple focal pneumonia most likely secondary to aspiration. He began vomiting this morning. He still has not been able to move his bowels. He was moving gas well last night but non today. Physical exam. He is alert and oriented 3 and lasts to Kip neck and tachycardic than before. His lungs show bilateral basal crackles but no rales or rhonchi. His heart is still slightly tachycardic but with a regular rate and rhythm. His abdomen is quite distended with well-healing incisions. His extremities show no cyanosis clubbing or edema. Impression: -POD #2 da Naman assisted laparoscopic robotic prostatectomy -New onset pneumonia most likely aspiration pneumonia now with significant ileus -Chronic anemia given 2 units of packed red blood cells just today for an H&H of 7.9/28.2. Today his H&H is 13/44.7 but most likely he became dehydrated Plan: -Treat the pneumonia medically -Agree with NGT and NPO until ileus resolves -Attempted ambulation when the patient is medically stable -Continue DVT prophylaxis with Teds/SCDs -Continue Madden catheter drainage VS,Fishbone, I+O VS, Fishbone, I+O Laboratory Tests 03/14/19 06:12 03/14/19 10:24 Vital Signs Date Time Temp Pulse Resp B/P (MAP) Pulse Ox O2 Delivery O2 Flow Rate FiO2 03/14/19 12:13 98.3 138 22 147/87 (107) 90 Nasal Cannula 2.0 I&O- Last 24 Hours up to 6 AM 03/14/19 06:00 Intake Total 3820 ml Output Total 2060 ml Balance 1760 ml ASIM RIZZO MD Mar 14, 2019 13:40
[2019-03-14] MEDS: PIPERACILLIN/TAZOBACTAM SOD 3.375 GM in D5W MINI-BAG PLUS 50 ML IV SCH ×2 (15:18→20:53)
[2019-03-14 16:00] VITALS: BP 128/69
[2019-03-14] MEDS ORDERED: CHLORASEPTIC SPRAY MT PRN (18:45)
[2019-03-14 20:00] VITALS: BP 141/90
[2019-03-14] MEDS ORDERED: MOM 30ML SUSPENSION UDC PEG PRN (20:24)
[2019-03-14] MEDS ORDERED: PERCOCET 5MG/325MG TAB PEG PRN ×2 (20:25→20:26)
[2019-03-14] MEDS ORDERED: lamoTRIgine 100MG TAB PEG SCH (21:00)
[2019-03-14] MEDS ORDERED: PERCOCET 5MG/325MG TAB PO PRN ×2 (21:00)
[2019-03-14] MEDS ORDERED: GABAPENTIN 100 MG CAP PEG SCH (21:00)
[2019-03-14] MEDS ORDERED: DOCUSATE SOD LIQ 100MG/10ML UDC PEG SCH (21:00)
[2019-03-14] MEDS: DOCUSATE SOD LIQ 100MG/10ML UDC PO SCH (21:00)
[2019-03-14] MEDS ORDERED: MOM 30ML SUSPENSION UDC PO PRN (21:05)
--- NOTE | 2019-03-14 22:12 | REPVR ---
PROCEDURE INFORMATION: Exam: XR Abdomen, 1 View Exam date and time: 03/14/2019 9:25 PM Clinical history: 54 years old, male; Condition or disease; Other: Ng tube placement TECHNIQUE: Imaging protocol: XR of the abdomen. Views: Frontal supine view of the abdomen. 1 View. COMPARISON: CR Abdomen,Flat Upright,PA CHEST 03/14/2019 11:41 AM FINDINGS: Tubes, catheters and devices: NG tube forming a loop in the distal esophagus and extending retrograde to at least the mid esophagus. Gastrointestinal tract: Prominent bowel gas with borderline distention of the colon to at least the sigmoid. There is some mild small bowel distention as well. Bones/joints: Unremarkable for age. IMPRESSION: 1. Prominent bowel gas with borderline distention of the colon and mild small bowel distention which is similar to a study done earlier in the day. 2. NG tube which forms a loop at the GE junction and extends retrograde to at least the mid esophagus. Electronically signed by: Alli Alejandra On 03/14/2019 22:12:40 PM
[2019-03-14] MEDS ORDERED: diphenhydrAMINE INJ 50MG/ML VIAL (J1200) IV ONE (22:15)
[2019-03-15] VITALS (7 sets, daily range): BP systolic 128–144; BP diastolic 73–95
--- NOTE | 2019-03-15 00:20 | IPNPDOC ---
Text Note Date of Service The patient was seen on 03/15/19. NOTE Ordered a KUB to confirm NG tube placement. Xray showed that NG tube which forms a loop at the GE junction and extends retrograde to at least the mid esophagus. Nursing staff removed the tube and attempted to replaced it. On second x-ray, NG tube was looked to be looped again in the GE junction. Will remove NG tube for the night. Patient is comfortable, no significant abdominal pain. I would recommend EGD or visualization before attempting to place a 3rd NG tube. VS,Fishbone, I+O VS, Fishbone, I+O Laboratory Tests 03/14/19 06:12 03/14/19 10:24 Vital Signs Date Time Temp Pulse Resp B/P (MAP) Pulse Ox O2 Delivery O2 Flow Rate FiO2 03/14/19 20:00 98.8 102 20 141/90 (107) 95 Nasal Cannula 4.0 I&O- Last 24 Hours up to 6 AM 03/15/19 06:00 Intake Total 540 ml Output Total 2130 ml Balance -1590 ml GME ATTESTATION GME ATTESTATION My faculty preceptor for this patient encounter was physically present during the encounter and was fully available. All aspects of the patient interview, examination, medical decision making process, and medical care plan development were reviewed and approved by the faculty preceptor. The faculty preceptor is aware and concurs with the plan as stated in the body of this note and will attest to such by his/her cosignature. JOSE JOHNSON DO Mar 15, 2019 00:20
[2019-03-15] MEDS: KCL 40MEQ in NS 1000ML 1,000 ML IV SCH ×2 (01:05→15:26)
[2019-03-15] MEDS: PIPERACILLIN/TAZOBACTAM SOD 3.375 GM in D5W MINI-BAG PLUS 50 ML IV SCH ×4 (01:05→20:08)
[2019-03-15] MEDS: HEPARIN SOD (PORCINE) 5000 UNITS/ML VIAL SC SCH ×3 (05:19→21:42)
[2019-03-15 05:30] LABS: BASO % 0.3 % (0.0-1.0); EOS # 0.1 10^3/uL (0.0-0.5); EOS % 0.4 % (0.0-3.0); HEMATOCRIT 39.9 % (42.0-52.0); HEMOGLOBIN 11.5 g/dl (13.5-17.5); LYMPH # 0.7 10^3/uL (1.5-5.0); LYMPH % 5.3 % (24.0-44.0); MEAN CORPUSCULAR HGB CONC 28.8 g/dl (32.0-36.5); MEAN CORPUSCULAR VOLUME 72.8 fl (80.0-96.0); MONO # 0.5 10^3/uL (0.0-0.8); MONO % 3.4 % (0.0-5.0); NEUTROPHILS # 12.1 10^3/uL (1.5-8.5); NEUTROPHILS % 90.2 % (36.0-66.0); PLATELET COUNT, AUTOMATED 235 10^3/uL (150-450); RED BLOOD COUNT 5.48 10^6/uL (4.30-6.10); WHITE BLOOD COUNT 13.4 10^3/uL (4.0-10.0)
[2019-03-15 05:56] LABS: ALBUMIN 2.9 GM/DL (3.2-5.2); ALT/SGPT 20 U/L (12-78); BILIRUBIN,TOTAL 0.8 MG/DL (0.2-1.0); BLOOD UREA NITROGEN 19 MG/DL (7-18); CALCIUM LEVEL 9.1 MG/DL (8.5-10.1); CARBON DIOXIDE LEVEL 33 MEQ/L (21-32); CHLORIDE LEVEL 105 MEQ/L (98-107); CREATININE FOR GFR 0.94 MG/DL (0.70-1.30); GLOMERULAR FILTRATION RATE > 60.0 (>56); GLUCOSE, FASTING 104 MG/DL (70-100); POTASSIUM SERUM 3.9 MEQ/L (3.5-5.1); SODIUM LEVEL 143 MEQ/L (136-145); TOTAL PROTEIN 6.8 GM/DL (6.4-8.2)
--- NOTE | 2019-03-15 07:47 | ROOPDOC ---
[facility] Report Of Operation Report of Operation DATE OF PROCEDURE: 03/12/19 PREPROCEDURE DIAGNOSES: Prostate Cancer. POSTPROCEDURE DIAGNOSES: Prostate Cancer. PROCEDURE: Robotic-assisted Laparoscopic Radical Prostatectomy with Bilateral Pelvic Lymph Node Dissection. SURGEON: Juanjo Craig MD TRAINING ENGINEER: Katt Barr NP ANESTHESIA: General. OPERATIVE INDICATIONS: This is a 54 year old male with clinical T1c Ricky 3+4 prostate cancer, here today for treatment. DESCRIPTION OF PROCEDURE: The patient was brought to the operating room and general anesthesia was induced. Prophylactic antibiotics were infused. He was then placed in the supine position and prepped and draped in the usual sterile fashion. At this point, a Madden catheter was inserted into the bladder and the balloon was filled with 10 mL of sterile water. We then made a midline incision just above the umbilicus for an 8 mm port. A Veress needle was utilized to achieve pneumoperitoneum. Next, an 8 mm port was inserted into the incision and subsequently a camera was inserted. There were no injuries from the Veress needle or initial trocar placement. Then three robotic ports were placed in the usual configuration in line just below the level of the umbilicus. A 12 mm nutrition services assistant port was inserted lateral to the camera port. Once all the ports were placed, the robot was docked. Additional lysis of adhesions between the sigmoid colon and abdominal wall was then performed. The bladder was then released from the anterior abdominal wall using electrocautery. Once the bladder was dropped, the fat overlying the prostate was cleared using electrocautery. The superficial dorsal vein was controlled with electrocautery. The endopelvic fascia was opened on both sides and the dorsal venous complex was cleared. Next, a #0 Vicryl rchubs-cb-upffz stitch was placed around the dorsal venous complex. Once that was done, the bladder was opened and dissected away from the prostate. At this point, the prostate was lifted up. The vasa deferentia were identified in the midline. They were controlled with electrocautery and then transected. The seminal vesicles were also dissected bilaterally. At this point I ligated and transected bilateral prostatic pedicles using the Harmonic scalpel. The pedicles were carried towards the apex. After taking care of the pedicles the dorsal venous complex was transected with electrocautery. The urethra was transected. The prostate was then mobilized off the rectum using cold scissors. At this point, we checked for hemostasis and it appeared very good. Next, we performed bilateral pelvic lymph node dissection. This was done in a standard fashion. The limits of dissection were the iliac vein proximally, the obturator nerve distally, the pelvic sidewall laterally, and the bladder medially. All lymphatic tissue within these limits was removed. I performed the same procedure on both the right and left sides. Hemostasis was then obtained with a combination of bipolar electrocautery and Weck clips. The lymphatic packets were then placed in separate Endo Catch bags for future retrieval. Once hemostasis was confirmed, I then moved on to perform the vesicourethral anastomosis. The vesicourethral anastomosis was performed in running fashion us ing a Quill stitch. Once this was done, the final #20-Estonian Madden catheter was placed. The balloon was filled with 15 mL of sterile water. Upon completion of the vesicourethral anastomosis, it was tested by filling the bladder with sterile water. The anastomosis appeared to be watertight. At this point, the prostate and seminal vesicles were placed in an Endo Catch bag for future retrieval. A Khalif-Hassan drain was brought in through the left robotic port skin site and the drain was positioned anterior to the bladder. The robot was then undocked. A Jalen-Mendez fascial closure device was utilized to place a #0 Vicryl suture through the fascia of the 12 mm nutrition services assistant port. The drain was secured to the skin with #2-0 Ethilon suture. The prostate, as well as the lymphatic packets were then extracted from the camera port site after the skin was extended. The fascia in this incision was then closed with a running #0 Vicryl stitch. Next, all the remaining ports were removed and there did not appear to be any bleeding from any of the port sites. The previously placed #0 Vicryl free ties through the nutrition services assistant port were then tied down and all incisions were irrigated. Last, all of the incisions were closed with running subcuticular #4-0 Monocryl sutures. Local anesthesia was applied. Dermabond was then applied to the incisions. This marked the conclusion of the procedure. The patient was then awakened from anesthesia and transported to the recovery room in stable condition. ESTIMATED BLOOD LOSS: 225 mL. COMPLICATIONS: None. SPECIMENS: Prostate and seminal vesicles, right pelvic lymph nodes, left pelvic lymph nodes. PLAN: The patient will be admitted to the hospital postoperatively, and he will likely be discharged home within the next 1-2 days. JUANJO CRAIG MD Mar 15, 2019 07:47
--- NOTE | 2019-03-15 08:18 | REP ---
Clinical: Pneumonia. Technique: Upright view of the chest with supine and upright views of the abdomen and pelvis. Comparison: 03/14/2019. Findings: Bibasilar infiltrates are again appreciated along with diffuse chronic interstitial changes and emphysematous disease. Supine and upright views of the abdomen and pelvis demonstrate air-fluid levels consistent with small bowel obstruction. No obvious free air. Impression: 1. Lower lobe consolidations with chronic changes. 2. High-grade Small bowel obstruction. Electronically Signed by Trent Holt MD 03/15/2019 08:09 A
--- NOTE | 2019-03-15 08:24 | REP ---
Clinical: Nasogastric tube placement. Technique: Portable supine views of the abdomen and pelvis. Findings: High-grade small bowel obstruction with continued colonic gas is appreciated raising the possibility of associated ileus. A nasogastric tube is identified extending to the gastroesophageal junction and coiling back into the esophagus. Impression: 1. High-grade small bowel obstruction. Colonic gas raises the possibility of associated ileus. 2. Nasogastric tube requires repositioning. Electronically Signed by Trent Holt MD 03/15/2019 08:16 A
[2019-03-15] MEDS: PANTOPRAZOLE 40MG INJ (PROTONIX) (C9113) IV SCH (08:32)
[2019-03-15] MEDS: DOCUSATE SOD LIQ 100MG/10ML UDC PO SCH ×2 (08:33→20:09)
[2019-03-15] MEDS: lamoTRIgine 100MG TAB PO SCH ×2 (08:33→20:10)
[2019-03-15] MEDS: GABAPENTIN 100 MG CAP PO SCH ×2 (08:33→20:10)
--- NOTE | 2019-03-15 09:12 | IPNPDOC ---
Subjective Date Seen The patient was seen on 03/15/19. Subjective Chief Complaint/HPI No more nausea or vomiting. No abdominal pain is still slightly tachycardic General: Denies: ROS Unobtainable, Chills, Night Sweats, Fatigue, Malaise, Normal Appetite, Other Symptoms Constitutional: Denies: Chills, Fever, Malaise, Night Sweats, Weakness, Fatigue, Weight Loss, Lethargy, Other Eyes: Denies: Pain, Vision change, Conjunctivae inflammation, Eyelid inflammation, Redness, Other ENT: Denies: Head Aches, Ear Pain, Dysphagia, Sinus Congestion, Post Nasal Drip, Sore Throat, Epistaxis, Other Symptoms Skin: Denies: Rash, Lesions, Jaundice, Bruising, Itching, Dry, Breakdown, Nail Changes, Other Pulmonary: Denies: Dyspnea, Cough, Pleuritic Chest Pain, Other Symptoms Cardiovascular: Denies: Chest Pain, Palpitations, Orthopnea, Paroxysmal Noc. Dyspnea, Edema, Lt Headedness, Other Symptoms Gastrointestinal: Denies: Nausea, Vomiting, Abdominal Pain, Diarrhea, Constipation, Melena, Hematochezia, Other Symptoms Musculoskeletal: Denies: Neck Pain, Back Pain, Shoulder Pain, Arm Pain, Hand Pain, Leg Pain, Foot Pain, Joint Pain, Muscle Pain, Spasms, Other Symptoms Neurological: Denies: Weakness, Numbness, Incoordination, Change in speech, Confusion, Seizures, Other Symptoms Objective Physical Examination General Exam: Positive: Alert, Cooperative Eye Exam: Positive: PERRLA, Conjunctiva & lids normal Chest Exam: Positive: Clear to auscultation Heart Exam: Positive: Tachycardic, Normal S1 Abdomen Exam: Positive: Normal bowel sounds, Soft Extremity Exam: Positive: Normal pulses Skin Exam: Positive: Nl turgor and temperature Neuro Exam: Positive: Strength at 5/5 X4 ext, Sensation Intact Assessment /Plan Problems (1) Aspiration pneumonia Status: Acute Problem Text: Patient is clinically improved with IV fluids and IV antibiotics Continue IV Zosyn as per orders Repeat x-ray shows bibasilar infiltrates WBC count is 13.4 and electrolytes are within normal range Continue present care (2) SBO (small bowel obstruction) Status: Acute Problem Text: Patient had a G-tube in for intermittent suction secondary to recurrent vomiting NG tube was taken out last night and the resident was unable to put it in as it seems to coil in distal esophagus NG tube is out but patient is asymptomatic. No more nausea, vomiting at the present time Patient is nothing by mouth except meds Discussed with Dr. Guerra. She will call surgical consult today as GI is not av ailable during this weekend Further, as per surgical recommendations (3) History of robot-assisted laparoscopic radical prostatectomy Status: Acute Problem Text: Status post robotic radical prostatectomy Further, as per urology's recommendation Plan/VTE VTE Prophylaxis Ordered?: Yes VS, I&O, 24H, Fishbone Vital Signs/I&O Vital Signs Date Time Temp Pulse Resp B/P (MAP) Pulse Ox O2 Delivery O2 Flow Rate FiO2 03/15/19 07:57 97.8 98 93 137/86 (103) 95 Room Air 03/15/19 04:00 4.0 I&O- Last 24 Hours up to 6 AM 03/15/19 06:00 Intake Total 1755 ml Output Total 3395 ml Balance -1640 ml Laboratory Data 24H LABS Laboratory Tests 2 03/14/19 10:24: Nucleated Red Blood Cells % (auto) 0.0, Prothrombin Time 13.2, Prothromb Time International Ratio 1.03, D-Dimer, Quantitative 2360.91H, Anion Gap 9, Glomerular Filtration Rate > 60.0, Lactic Acid Level 2.4*H, Calcium Level 9.4, Magnesium Level 2.8H, Total Bilirubin 0.8, Aspartate Amino Transf (AST/SGOT) 15, Alanine Aminotransferase (ALT/SGPT) 16, Alkaline Phosphatase 74, Troponin I < 0.02, WZ-Qut-Z-Type Natriuretic Peptide 178H, Total Protein 7.4, Albumin 3.3, Albumin/Globulin Ratio 0.80L, Lipase 200 03/14/19 10:44: Bedside Glucose (Misc Panel) 137H 03/14/19 12:50: Urine Color STRAW, Urine Appearance CLEAR, Urine pH 7.0, Urine Specific [place] 1.019, Urine Protein NEGATIVE, Urine Glucose (Auto)(UA) NEGATIVE, Urine Ketones (Auto) NEGATIVE, Urine Blood 3+H, Urine Nitrite NEGATIVE, Urine Bilirubin NEGATIVE, Urine Urobilinogen 0.2, Urine Leukocyte Esterase (Auto) TRACEH, Urine WBC (Auto) 3, Urine RBC (Auto) TNTCH, Urine Hyaline Casts (Auto) 0, Urine Bacteria (Auto) NEGATIVE, Urine Squamous Epithelial Cells 0, Urine Mucus (Auto) SMALL, Urine Sperm (Auto) 03/14/19 15:49: Troponin I < 0.02, Lactic Acid Followup at 4 Hours 1.9 03/14/19 22:15: Troponin I < 0.02 03/15/19 04:47: Immature Granulocyte % (Auto) 0.4, Neutrophils (%) (Auto) 90.2H, Lymphocytes (%) (Auto) 5.3L, Monocytes (%) (Auto) 3.4, Eosinophils (%) (Auto) 0.4, Basophils (%) (Auto) 0.3, Neutrophils # (Auto) 12.1H, Lymphocytes # (Auto) 0.7L, Monocytes # (Auto) 0.5, Eosinophils # (Auto) 0.1, Basophils # (Auto) 0.0, Nucleated Red Blood Cells % (auto) 0.0, Anion Gap 5L, Glomerular Filtration Rate > 60.0, Calcium Level 9.1, Total Bilirubin 0.8, Aspartate Amino Transf (AST/SGOT) 22, Alanine Aminotransferase (ALT/SGPT) 20, Alkaline Phosphatase 125H, Total Protein 6.8, Albumin 2.9L, Albumin/Globulin Ratio 0.74L CBC/BMP Laboratory Tests 03/14/19 10:24 03/15/19 04:47 SONNY TEJEDA MD Mar 15, 2019 09:12
--- NOTE | 2019-03-15 10:05 | IPNPDOC ---
Text Note Date of Service The patient was seen on 03/15/19. NOTE Hector is postop day #3 robotic-assisted laparoscopic prostatectomy by Dr. Avtar mercado. Yesterday he had shortness of breath and tachycardia after vomiting and was found to have most likely aspiration pneumonia and was transferred to PCU. CT scan yesterday showed no pulmonary embolus and microscopic free air below the diaphragm expected after a laparoscopic procedure. He also had multiple focal consolidations compatible with acute pneumonia versus atelectasis. Causes of the vomiting and abdominal distention a NG tube was attempted to be placed but unfortunately a kept on curling in the esophagus. He shows evidence of a high- grade small bowel obstruction and lower lobe consolidations with chronic changes. He is still belching and not passing gas. Physical exam. He is alert and oriented 3 and. He is now on room air and his respiratory rate seems much more normal than yesterday. He is afebrile. His lungs show bilateral basal crackles but no rales or rhonchi. His heart is still slightly tachycardic but with a regular rate and rhythm. His abdomen is less distended than yesterday with well-healing incisions. His extremities show no cyanosis clubbing or edema. Impression: -POD #3 da Naman assisted laparoscopic robotic prostatectomy -New onset pneumonia most likely aspiration pneumonia now with significant ileus and small bowel obstruction unable to place a NG tube -Chronic anemia given 2 units of packed red blood now with a stable H&H of 11.5 over 39.9 Plan: -Treat the pneumonia medically -Consult Dr. Edwards for the small bowel obstruction and I did discuss this with him -Continue DVT prophylaxis with Teds/SCDs -Continue Madden catheter drainage VS,Fishbone, I+O VS, Fishbone, I+O Laboratory Tests 03/14/19 10:24 03/15/19 04:47 Vital Signs Date Time Temp Pulse Resp B/P (MAP) Pulse Ox O2 Delivery O2 Flow Rate FiO2 03/15/19 07:57 97.8 98 93 137/86 (103) 95 Room Air 03/15/19 04:00 4.0 I&O- Last 24 Hours up to 6 AM 03/15/19 06:00 Intake Total 1755 ml Output Total 3395 ml Balance -1640 ml ASIM RIZZO MD Mar 15, 2019 10:05
[2019-03-15] MEDS ORDERED: CETACAINE SPRAY 5GM TOP ONE (12:00)
--- NOTE | 2019-03-15 13:05 | REP ---
Clinical: Nasogastric tube placement. Technique: Two supine views of the abdomen and pelvis. Findings: A nasogastric tube is identified extending to the level of the gastroesophageal junction with the side port above the level of diaphragm. Advancement is recommended. Continued evidence for high-grade small bowel obstruction. Impression: 1. Nasogastric tube warrants advancement. Electronically Signed by Trent Holt MD 03/15/2019 12:56 P
[2019-03-15] MEDS: SIMETHICONE 80 MG CHEW TAB PO SCH ×2 (15:26→20:10)
--- NOTE | 2019-03-15 19:18 | CR ---
DATE: 03/15/2019 The patient overall has been admitted status post laparoscopic prostatectomy and has developed a postoperative ileus / small bowel obstruction. He has been nothing by mouth with IV fluids. However, they tried to pass an NG tube, were not able to get this in, and I was asked to make some recommendations concerning NG tube placement / need for decompression. His x-rays indeed show a small bowel obstruction type picture with distended small bowel, loops of small bowel. Fortunately, since this morning and the consult, he has had a bowel movement, one large bowel movement and one small one. He has had a little bit of flatus but still has significant abdominal distension. States that he is still having some abdominal discomfort and crampy abdominal pain but not as severe as it was previously. His past medical history is significant for history of hyperlipidemia, alcohol abuse, depression, neck pain, hip pain, anxiety, gastroesophageal reflux disease, vocal cord paralysis, cystitis, erectile dysfunction, myocardial infarctions and ACL repair, bilateral ankle surgery, prostate biopsies, prostatectomy, as well as constipation. MEDICATIONS: Include: - Colace - gabapentin - gemfibrozil - Lamictal - omeprazole - pravastatin - Bactrim - trazodone - Percocet PHYSICAL EXAMINATION: Reveals a 54-year-old male who looks older than stated age. HEENT is unremarkable. Does have a previous trach type of incision. He has obvious vocal cord paralysis that has caused some hoarseness of his voice. Lungs are clear anteriorly. Heart is regular. Abdomen is distended, tympanitic without significant guarding, rebound or peritoneal signs. No hernias are appreciated or masses. No trocar site hernias appreciated. IMPRESSION AND PLAN: The patient has evidence of a small bowel obstruction / ileus postoperatively and I do feel that he needs an NG tube. He has had a bowel movement and fortunately if he was less distended, I would agree that we may be able to wait him out, but at this point with the significant distension appreciated on his x-rays, I am more concerned that he may develop a perforation / significant distension with complication. Thus, I placed an NG tube in without significant difficulty and postoperative films revealed the NG tube in the proximal stomach. He still has significant air distension throughout the colon and throughout the small bowel consistent with a probable ileus. My recommendation is that we keep the NG tube in, keep him nothing by mouth, IV fluids, and supportive care for right now. And will see how he is doing in the morning.
[2019-03-15] MEDS: PRAVASTATIN 20 MG TAB PO SCH (20:10)
[2019-03-15] MEDS: traZODone 100 MG TAB PO SCH (20:10)
[2019-03-16 00:30] VITALS: BP 135/89
[2019-03-16] MEDS: SIMETHICONE 80 MG CHEW TAB PO SCH ×4 (02:04→20:09)
[2019-03-16] MEDS: PIPERACILLIN/TAZOBACTAM SOD 3.375 GM in D5W MINI-BAG PLUS 50 ML IV SCH ×4 (02:04→20:08)
[2019-03-16 05:15] VITALS: BP 135/87
[2019-03-16] MEDS: HEPARIN SOD (PORCINE) 5000 UNITS/ML VIAL SC SCH ×3 (05:43→21:59)
[2019-03-16 06:11] LABS: BASO % 0.4 % (0.0-1.0); EOS # 0.2 10^3/uL (0.0-0.5); EOS % 2.1 % (0.0-3.0); HEMOGLOBIN 10.7 g/dl (13.5-17.5); LYMPH # 0.9 10^3/uL (1.5-5.0); LYMPH % 9.5 % (24.0-44.0); MEAN CORPUSCULAR HEMOGLOBIN 20.9 pg (27.0-33.0); MEAN CORPUSCULAR HGB CONC 28.2 g/dl (32.0-36.5); MEAN CORPUSCULAR VOLUME 74.1 fl (80.0-96.0); MONO # 0.5 10^3/uL (0.0-0.8); MONO % 5.7 % (0.0-5.0); NEUTROPHILS # 7.4 10^3/uL (1.5-8.5); NEUTROPHILS % 81.9 % (36.0-66.0); PLATELET COUNT, AUTOMATED 198 10^3/uL (150-450); RED BLOOD COUNT 5.13 10^6/uL (4.30-6.10)
[2019-03-16 06:30] LABS: ALBUMIN 2.5 GM/DL (3.2-5.2); ALT/SGPT 30 U/L (12-78); BILIRUBIN,TOTAL 0.5 MG/DL (0.2-1.0); BLOOD UREA NITROGEN 17 MG/DL (7-18); CALCIUM LEVEL 8.6 MG/DL (8.5-10.1); CARBON DIOXIDE LEVEL 23 MEQ/L (21-32); CHLORIDE LEVEL 111 MEQ/L (98-107); CREATININE FOR GFR 0.76 MG/DL (0.70-1.30); GLOMERULAR FILTRATION RATE > 60.0 (>56); GLUCOSE, FASTING 86 MG/DL (70-100); POTASSIUM SERUM 3.7 MEQ/L (3.5-5.1); SODIUM LEVEL 142 MEQ/L (136-145); TOTAL PROTEIN 6.7 GM/DL (6.4-8.2)
[2019-03-16] MEDS: PANTOPRAZOLE 40MG INJ (PROTONIX) (C9113) IV SCH (08:28)
[2019-03-16] MEDS: DOCUSATE SOD LIQ 100MG/10ML UDC PO SCH ×3 (08:28→21:00)
[2019-03-16] MEDS: lamoTRIgine 100MG TAB PO SCH ×2 (08:29→20:09)
[2019-03-16] MEDS: GABAPENTIN 100 MG CAP PO SCH ×2 (08:29→20:09)
[2019-03-16] MEDS: KCL 40MEQ in NS 1000ML 1,000 ML IV SCH (08:29)
--- NOTE | 2019-03-16 10:16 | REP ---
Abdominal series: Four views. History: Question resolved or resolving small bowel obstruction. Comparison radiographs March 15 2019. Findings: Upright chest radiograph at shows a discoid atelectasis in the right base. No free subdiaphragmatic air is seen. Nasogastric tube is seen with its tip in the body of the stomach. There are multiple differential air-fluid levels in dilated air and fluid-filled small bowel in the central abdomen. These are less numerous but similar in caliber when compared with the study done yesterday. There is less distal bowel gas. Some gas is seen in the transverse colon. There are pins in the left hip. Psoas margins and flank stripes are intact. There is a surgical drain in the left lower quadrant. There is old post-traumatic fracture deformity in the superior and inferior pubic rami on the left. Impression: Persistent the small bowel obstruction pattern. There is less distal colonic gas than was present on yesterday's radiograph. Electronically Signed by Keven Qiu MD 03/16/2019 10:07 A
--- NOTE | 2019-03-16 10:52 | IPNPDOC ---
Subjective Date Seen The patient was seen on 03/16/19. Subjective Chief Complaint/HPI Patient does not complain any symptoms of nausea, vomiting or abdominal pain General: Denies: ROS Unobtainable, Chills, Night Sweats, Fatigue, Malaise, Normal Appetite, Other Symptoms Pulmonary: Denies: Dyspnea, Cough, Pleuritic Chest Pain, Other Symptoms Gastrointestinal: Denies: Nausea, Vomiting, Abdominal Pain, Diarrhea, Constipation, Melena, Hematochezia, Other Symptoms Genitourinary: Denies: Dysuria, Frequency, Incontinence, Hematuria, Retention, Other Symptoms Psych: Denies: Mood Normal, Anxiety, Depression, Memory Issues, Thoughts of Self Harm, Anger, Thoughts of Harming Other, Other Psych Objective Physical Examination General Exam: Positive: Alert, Cooperative Eye Exam: Positive: PERRLA, Conjunctiva & lids normal Chest Exam: Positive: Clear to auscultation Heart Exam: Positive: Tachycardic, Normal S1 Abdomen Exam: Positive: Normal bowel sounds, Soft, Other (no tenderness) Extremity Exam: Positive: Normal pulses Skin Exam: Positive: Nl turgor and temperature Neuro Exam: Positive: Strength at 5/5 X4 ext, Sensation Intact Assessment /Plan Problems (1) Aspiration pneumonia Status: Acute Problem Text: Patient is clinically improving with current management Continue IV Zosyn as per orders MRSA screen is negative Repeat x-ray shows bibasilar infiltrates WBC count is 9 K and electrolytes are within normal range Continue present care (2) SBO (small bowel obstruction) Status: Acute Problem Text: Surgical consult appreciated Nothing by mouth Patient has NG tube with suction on and he is asymptomatic at the present time Conservative medical management as per surgery Will continue monitoring. Patient (3) History of robot-assisted laparoscopic radical prostatectomy Status: Acute Problem Text: Status post robotic radical prostatectomy Madden in place Further, as per urology Plan/VTE VTE Prophylaxis Ordered?: Yes VS, I&O, 24H, Fishbone Vital Signs/I&O Vital Signs Date Time Temp Pulse Resp B/P (MAP) Pulse Ox O2 Delivery O2 Flow Rate FiO2 03/16/19 05:15 97.6 83 18 135/87 (103) 94 Room Air 03/15/19 20:05 4.0 I&O- Last 24 Hours up to 6 AM 03/16/19 06:00 Intake Total 1220 ml Output Total 1950 ml Balance -730 ml Laboratory Data 24H LABS Laboratory Tests 2 03/16/19 05:52: Immature Granulocyte % (Auto) 0.4, Neutrophils (%) (Auto) 81.9H, Lymphocytes (%) (Auto) 9.5L, Monocytes (%) (Auto) 5.7H, Eosinophils (%) (Auto) 2.1, Basophils (%) (Auto) 0.4, Neutrophils # (Auto) 7.4, Lymphocytes # (Auto) 0.9L, Monocytes # (Auto) 0.5, Eosinophils # (Auto) 0.2, Basophils # (Auto) 0.0, Nucleated Red Blood Cells % (auto) 0.0, Anion Gap 8, Glomerular Filtration Rate > 60.0, Calcium Level 8.6, Total Bilirubin 0.5, Aspartate Amino Transf (AST/SGOT) 36, Alanine Aminotransferase (ALT/SGPT) 30, Alkaline Phosphatase 57, Total Protein 6.7, Albumin 2.5L, Albumin/Globulin Ratio 0.60L CBC/BMP Laboratory Tests 03/16/19 05:52 Microbiology Microbiology 03/16/19 Stool Occult Blood (CHARMAINE) - Final, Complete SONNY TEJEDA MD Mar 16, 2019 10:52
--- NOTE | 2019-03-16 11:29 | IPNPDOC ---
Text Note Date of Service The patient was seen on 03/16/19. NOTE Hector is postop day #4 robotic-assisted laparoscopic prostatectomy by Dr. Avtar mercado. Dr. Edwards was able to pass an NG tube last night and the patient is feeling much better. He actually had some bowel movements and is passing gas from down below and his abdomen is much more comfortable. Physical exam. He is alert and oriented 3 and. He is now on room air and his respiratory rate seems much more normal than yesterday. He is afebrile. His lungs show bilateral basal crackles but no rales or rhonchi. His heart is still slightly tachycardic but with a regular rate and rhythm. His abdomen is less distended than yesterday with well-healing incisions. His extremities show no cyanosis clubbing or edema. Impression: -POD #4 da Naman assisted laparoscopic robotic prostatectomy -New onset pneumonia most likely aspiration pneumonia now with significant ileus and small bowel obstruction with an NG tube and doing well -Chronic anemia given 2 units of packed red blood now with a stable H&H of 11.5 over 39.9 Plan: -Treat the pneumonia medically and he is on Zosyn now -Appreciate Dr. Edwards's consult and we will continue nothing by mouth for now and NG tube output was 250 mL yesterday -Continue DVT prophylaxis with Teds/SCDs -Continue Madden catheter drainage -JAIME drain down to 45 mL so probably can be removed tomorrow VS,[place], I+O VS, Fishbone, I+O Laboratory Tests 03/16/19 05:52 Vital Signs Date Time Temp Pulse Resp B/P (MAP) Pulse Ox O2 Delivery O2 Flow Rate FiO2 03/16/19 05:15 97.6 83 18 135/87 (103) 94 Room Air 03/15/19 20:05 4.0 I&O- Last 24 Hours up to 6 AM 03/16/19 06:00 Intake Total 1220 ml Output Total 1950 ml Balance -730 ml ASIM RIZZO MD Mar 16, 2019 11:29
--- NOTE | 2019-03-16 13:54 | IPN ---
DATE: 03/16/2019 The patient overall has felt much better since having several bowel movements and having some flatus but still is quite distended and tympanitic. She had a bowel movement earlier this morning and continues to have some flatus. Nasogastric tube is still putting out some air, some minimal liquid in this. X-ray was ordered for today and after I initially saw him this morning and the x-ray shows as what he appears on his physical exam to still have a persistent small bowel obstruction or at least an improvement of the current situation. Thus, at this point, I would like to keep him n.p.o., keep the NG tube in place and continue with supportive care at this time. His white count is normal suggesting that the etiology of the ileus and is not infectious, and I anticipate that this should continue to improve over the next 24-48 hours. Hopefully, we will be able to clamp the tube tomorrow and then discontinue that over the ensuing day. He can be progressed to clear liquids, etc.
[2019-03-16 14:00] VITALS: BP 116/68
[2019-03-16] MEDS: diphenhydrAMINE 50 MG CAP PO PRN (15:30)
[2019-03-16] MEDS: PRAVASTATIN 20 MG TAB PO SCH (20:08)
[2019-03-16] MEDS: traZODone 100 MG TAB PO SCH (20:08)
--- NOTE | 2019-03-16 21:33 | ECGEPIP ---
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
[2019-03-16 22:00] VITALS: BP 119/70
[2019-03-17] MEDS: KCL 40MEQ in NS 1000ML 1,000 ML IV SCH ×2 (02:00→17:56)
[2019-03-17] MEDS: SIMETHICONE 80 MG CHEW TAB PO SCH ×4 (02:01→20:37)
[2019-03-17] MEDS: PIPERACILLIN/TAZOBACTAM SOD 3.375 GM in D5W MINI-BAG PLUS 50 ML IV SCH ×2 (02:01→08:36)
[2019-03-17] MEDS: HEPARIN SOD (PORCINE) 5000 UNITS/ML VIAL SC SCH ×3 (05:00→20:38)
[2019-03-17 06:00] VITALS: BP 127/77
[2019-03-17 07:02] LABS: BASO # 0.1 10^3/uL (0.0-0.2); BASO % 0.8 % (0.0-1.0); EOS # 0.2 10^3/uL (0.0-0.5); EOS % 3.3 % (0.0-3.0); HEMATOCRIT 36.9 % (42.0-52.0); HEMOGLOBIN 10.5 g/dl (13.5-17.5); LYMPH # 0.9 10^3/uL (1.5-5.0); LYMPH % 13.7 % (24.0-44.0); MEAN CORPUSCULAR HEMOGLOBIN 21.1 pg (27.0-33.0); MEAN CORPUSCULAR HGB CONC 28.5 g/dl (32.0-36.5); MEAN CORPUSCULAR VOLUME 74.1 fl (80.0-96.0); MONO # 0.4 10^3/uL (0.0-0.8); MONO % 6.4 % (0.0-5.0); NEUTROPHILS # 4.9 10^3/uL (1.5-8.5); NEUTROPHILS % 75.3 % (36.0-66.0); PLATELET COUNT, AUTOMATED 211 10^3/uL (150-450); RED BLOOD COUNT 4.98 10^6/uL (4.30-6.10); WHITE BLOOD COUNT 6.4 10^3/uL (4.0-10.0)
[2019-03-17 07:21] LABS: ALBUMIN 2.9 GM/DL (3.2-5.2); ALT/SGPT 23 U/L (12-78); BILIRUBIN,TOTAL 0.5 MG/DL (0.2-1.0); BLOOD UREA NITROGEN 17 MG/DL (7-18); CALCIUM LEVEL 8.9 MG/DL (8.5-10.1); CARBON DIOXIDE LEVEL 26 MEQ/L (21-32); CHLORIDE LEVEL 110 MEQ/L (98-107); CREATININE FOR GFR 0.78 MG/DL (0.70-1.30); GLOMERULAR FILTRATION RATE > 60.0 (>56); GLUCOSE, FASTING 77 MG/DL (70-100); POTASSIUM SERUM 3.8 MEQ/L (3.5-5.1); SODIUM LEVEL 144 MEQ/L (136-145); TOTAL PROTEIN 6.7 GM/DL (6.4-8.2)
--- NOTE | 2019-03-17 08:24 | IPNPDOC ---
Subjective Review oF Systems Chief Complaint The patient is a 54-year-old male admitted with a reason for visit of Prostate Cancer. Events since Last Encounter No acute events o/n. Patient notes that he has had a few bms and feels much better. He notes that he feels a lot less bloated. No nausea. No abd pain. No f/c/ns. Objective Physical Examination General Exam: Alert, Cooperative, No Acute Distress ENT EXAM: Other ENT (NGT in place and clamped) ABDOMEN EXAM: Soft, Other (nondistended; incisions clean/dry/intact; JAIME w/ serous output); No: Tenderness Skin Exam: Nl turgor and temperature Psych Exam: Mental status NL, Mood NL Other physical findings catheter draining lou colored urine Vital Signs/I&O Vital Signs Date Time Temp Pulse Resp B/P (MAP) Pulse Ox O2 Delivery O2 Flow Rate FiO2 03/17/19 06:00 97.9 83 18 127/77 (94) 97 03/16/19 22:00 Room Air 03/15/19 20:05 4.0 I&O- Last 24 Hours up to 6 AM 03/17/19 06:00 Intake Total 800 ml Output Total 2235 ml Balance -1435 ml Laboratory Data Labs 24H Laboratory Tests 2 03/17/19 06:14: Immature Granulocyte % (Auto) 0.5, Neutrophils (%) (Auto) 75.3H, Lymphocytes (%) (Auto) 13.7L, Monocytes (%) (Auto) 6.4H, Eosinophils (%) (Auto) 3.3H, Basophils (%) (Auto) 0.8, Neutrophils # (Auto) 4.9, Lymphocytes # (Auto) 0.9L, Monocytes # (Auto) 0.4, Eosinophils # (Auto) 0.2, Basophils # (Auto) 0.1, Nucleated Red Blood Cells % (auto) 0.0, Anion Gap 8, Glomerular Filtration Rate > 60.0, Calcium Level 8.9, Total Bilirubin 0.5, Aspartate Amino Transf (AST/SGOT) 17, Alanine Aminotransferase (ALT/SGPT) 23, Alkaline Phosphatase 57, Total Protein 6.7, Albumin 2.9L, Albumin/Globulin Ratio 0.76L CBC/BMP Laboratory Tests 03/17/19 06:14 Microbiology Microbiology 03/16/19 Stool Occult Blood (CHARMAINE) - Final, Complete Assessment/Plan Date Seen The patient was seen on 03/17/19. Patient Summary This is a 54 y/o M POD 5 s/p RALP w/ BPLND, w/ postop course complicated by likely aspiration pneumonia and a SBO. He has been on abx for a few days now for pneumonia and is saturating well on room air. His SBO appears to be resolving as he is having bms and per his report his abd is much softer and he feels less bloated. Problems (1) Aspiration pneumonia Status: Acute (2) SBO (small bowel obstruction) Status: Acute (3) History of robot-assisted laparoscopic radical prostatectomy Status: Acute Plan/VTE VTE Prophylaxis Ordered?: Yes Plan - appreciate general surgery recs for SBO - per nursing plan is to keep the NGT clamped until noon and likely remove it if no set backs - cont treatment of aspiration pneumonia per hospitalist team - appreciate recs - ambulate - SCDs when in bed - SQH - incentive spirometry - catheter to gravity drainage - d/c JAIME drain - diet per general surgery - assuming patient is able to tolerate a diet by tomorrow, possible discharge home tomorrow JUANJO CRAIG MD Mar 17, 2019 08:24
[2019-03-17] MEDS: PANTOPRAZOLE 40MG INJ (PROTONIX) (C9113) IV SCH (08:36)
[2019-03-17] MEDS: GABAPENTIN 100 MG CAP PO SCH ×2 (08:36→20:37)
[2019-03-17] MEDS: lamoTRIgine 100MG TAB PO SCH ×2 (08:36→20:37)
[2019-03-17] MEDS: DOCUSATE SOD LIQ 100MG/10ML UDC PO SCH ×2 (08:37→20:37)
[2019-03-17 10:00] VITALS: BP 126/70
--- NOTE | 2019-03-17 11:08 | IPNPDOC ---
Subjective Date Seen The patient was seen on 03/17/19. Subjective Chief Complaint/HPI Patient's abdominal pain is much better. He had a BM and feels a lot better than yesterday General: Denies: ROS Unobtainable, Chills, Night Sweats, Fatigue, Malaise, Normal Appetite, Other Symptoms Constitutional: Denies: Chills, Fever, Malaise, Night Sweats, Weakness, Fatigue, Weight Loss, Lethargy, Other Eyes: Denies: Pain, Vision change, Conjunctivae inflammation, Eyelid in flammation, Redness, Other ENT: Denies: Head Aches, Ear Pain, Dysphagia, Sinus Congestion, Post Nasal Drip, Sore Throat, Epistaxis, Other Symptoms Skin: Denies: Rash, Lesions, Jaundice, Bruising, Itching, Dry, Breakdown, Nail Changes, Other Pulmonary: Denies: Dyspnea, Cough, Pleuritic Chest Pain, Other Symptoms Cardiovascular: Denies: Chest Pain, Palpitations, Orthopnea, Paroxysmal Noc. Dyspnea, Edema, Lt Headedness, Other Symptoms Gastrointestinal: Reports: Abdominal Pain Genitourinary: Reports: Other Symptoms Musculoskeletal: Denies: Neck Pain, Back Pain, Shoulder Pain, Arm Pain, Hand Pain, Leg Pain, Foot Pain, Joint Pain, Muscle Pain, Spasms, Other Symptoms Neurological: Denies: Weakness, Numbness, Incoordination, Change in speech, Confusion, Seizures, Other Symptoms Objective Physical Examination General Exam: Positive: Alert, Cooperative Eye Exam: Positive: PERRLA, Conjunctiva & lids normal Chest Exam: Positive: Clear to auscultation Abdomen Exam: Positive: Normal bowel sounds, Soft, Other (, not distended and no tenderness at present) Extremity Exam: Positive: Normal pulses Skin Exam: Positive: Nl turgor and temperature Neuro Exam: Positive: Strength at 5/5 X4 ext, Sensation Intact Assessment /Plan Problems (1) Aspiration pneumonia Status: Acute Problem Text: Patient is clinically improved. His WBC count is 6.4 Patient is completely asymptomatic. Will change IV antibiotics to by mouth Augmentin for 5 more days Incentive spirometry possible discharge in a.m. once cleared by urology and surgery (2) SBO (small bowel obstruction) Status: Acute Problem Text: Progressively resolving pthad a BM today NG tube is still in place and on gravity decompression Patient probably will be started on by mouth diet today by surgery (3) History of robot-assisted laparoscopic radical prostatectomy Status: Acute Problem Text: Status post robotic radical prostatectomy Madden in place Further, as per urology Plan/VTE VTE Prophylaxis Ordered?: Yes VS, I&O, 24H, Fishbone Vital Signs/I&O Vital Signs Date Time Temp Pulse Resp B/P (MAP) Pulse Ox O2 Delivery O2 Flow Rate FiO2 03/17/19 06:00 97.9 83 18 127/77 (94) 97 03/16/19 22:00 Room Air 03/15/19 20:05 4.0 I&O- Last 24 Hours up to 6 AM 03/17/19 06:00 Intake Total 800 ml Output Total 2235 ml Balance -1435 ml Laboratory Data 24H LABS Laboratory Tests 2 03/17/19 06:14: Immature Granulocyte % (Auto) 0.5, Neutrophils (%) (Auto) 75.3H, Lymphocytes (%) (Auto) 13.7L, Monocytes (%) (Auto) 6.4H, Eosinophils (%) (Auto) 3.3H, Basophils (%) (Auto) 0.8, Neutrophils # (Auto) 4.9, Lymphocytes # (Auto) 0.9L, Monocytes # (Auto) 0.4, Eosinophils # (Auto) 0.2, Basophils # (Auto) 0.1, Nucleated Red Blood Cells % (auto) 0.0, Anion Gap 8, Glomerular Filtration Rate > 60.0, Calcium Level 8.9, Total Bilirubin 0.5, Aspartate Amino Transf (AST/SGOT) 17, Alanine Aminotransferase (ALT/SGPT) 23, Alkaline Phosphatase 57, Total Protein 6.7, Albumin 2.9L, Albumin/Globulin Ratio 0.76L CBC/BMP Laboratory Tests 03/17/19 06:14 Microbiology Microbiology 03/16/19 Stool Occult Blood (CHARMAINE) - Final, Complete SONNY TEJEDA MD Mar 17, 2019 11:08
[2019-03-17 14:00] VITALS: BP 130/76
--- NOTE | 2019-03-17 15:55 | REP ---
KUB: Two views. History: Small bowel obstruction. Comparison study: March 16, 2019. Findings: In the interval since the March 16, 2019 prior study, the nasogastric tube appears to have been withdrawn. There are persistently dilated air and fluid filled loops of small bowel in the central abdomen consistent with persistent small bowel obstruction pattern. There is a paucity of distal bowel gas. Pattern is essentially unchanged. Post traumatic changes are noted in the left pelvis and distal sacrum as before. Impression: Persistent moderate small bowel obstruction pattern essentially unchanged. Electronically Signed by Keven Qiu MD 03/17/2019 07:50 P
--- NOTE | 2019-03-17 16:53 | IPN ---
DATE: 03/17/2019 The patient seems to be making some good progress his abdomen became is becoming this less distended each day and overall he has been afebrile and he has been having significant amount of flatus as well as some bowel movements. He has had no fevers or chills and his white count is normal. His abdomen is less distended and non-tympanitic. We clamp the NG tube this morning after seeing him and at noon time he seemed to be making some good progress. However, he still has quite a boggy abdomen suggested that things have not completely resolved. Thus at this point I have discussed with him to keep him nothing by mouth overnight and then probably start a clear liquid diet if he tolerates being nothing by mouth and with the NG tube out tomorrow morning. If he does then he can have his diet progressed as tolerated. Otherwise seems to be making some good progress at this time.
[2019-03-17] MEDS: PRAVASTATIN 20 MG TAB PO SCH (20:36)
[2019-03-17] MEDS: AUGMENTIN 875 MG TAB PO SCH (20:37)
[2019-03-17] MEDS: traZODone 100 MG TAB PO SCH (20:37)
[2019-03-17 22:00] VITALS: BP 126/80
[2019-03-18] MEDS: SIMETHICONE 80 MG CHEW TAB PO SCH ×4 (03:05→21:08)
[2019-03-18] MEDS: HEPARIN SOD (PORCINE) 5000 UNITS/ML VIAL SC SCH ×3 (05:10→21:08)
[2019-03-18 06:00] VITALS: BP 127/77
[2019-03-18 06:04] LABS: HEMATOCRIT 35.4 % (42.0-52.0); HEMOGLOBIN 10.2 g/dl (13.5-17.5); MEAN CORPUSCULAR HEMOGLOBIN 21.2 pg (27.0-33.0); MEAN CORPUSCULAR HGB CONC 28.8 g/dl (32.0-36.5); MEAN CORPUSCULAR VOLUME 73.4 fl (80.0-96.0); PLATELET COUNT, AUTOMATED 182 10^3/uL (150-450); RED BLOOD COUNT 4.82 10^6/uL (4.30-6.10); WHITE BLOOD COUNT 4.6 10^3/uL (4.0-10.0)
[2019-03-18 06:20] LABS: BLOOD UREA NITROGEN 9 MG/DL (7-18); CALCIUM LEVEL 8.4 MG/DL (8.5-10.1); CARBON DIOXIDE LEVEL 24 MEQ/L (21-32); CHLORIDE LEVEL 111 MEQ/L (98-107); CREATININE FOR GFR 0.66 MG/DL (0.70-1.30); GLOMERULAR FILTRATION RATE > 60.0 (>56); GLUCOSE, FASTING 93 MG/DL (70-100); POTASSIUM SERUM 3.7 MEQ/L (3.5-5.1); SODIUM LEVEL 141 MEQ/L (136-145)
--- NOTE | 2019-03-18 07:42 | IPNPDOC ---
Subjective Review oF Systems Chief Complaint The patient is a 54-year-old male admitted with a reason for visit of Prostate Cancer. Events since Last Encounter No acute events o/n. NGT removed yesterday afternoon and clears started. Patient notes that he has tolerated this well. He denies n/v. Denies abd pain. Still passing flatus and having bms. No f/c/ns. Objective Physical Examination General Exam: Alert, Cooperative, No Acute Distress ABDOMEN EXAM: Soft, Other (nondistended; incisions clean/dry/intact); No: Tenderness Skin Exam: Nl turgor and temperature Psych Exam: Mental status NL, Mood NL Other physical findings catheter draining clear urine Vital Signs/I&O Vital Signs Date Time Temp Pulse Resp B/P (MAP) Pulse Ox O2 Delivery O2 Flow Rate FiO2 03/18/19 06:00 98.7 71 18 127/77 (94) 96 Room Air 03/15/19 20:05 4.0 I&O- Last 24 Hours up to 6 AM 03/18/19 06:00 Intake Total 2390 ml Output Total 850 ml Balance 1540 ml Laboratory Data Labs 24H Laboratory Tests 2 03/18/19 05:49: Nucleated Red Blood Cells % (auto) 0.0, Anion Gap 6L, Glomerular Filtration Rate > 60.0, Calcium Level 8.4L CBC/BMP Laboratory Tests 03/18/19 05:49 Microbiology Microbiology 03/16/19 Stool Occult Blood (CHARMAINE) - Final, Complete Assessment/Plan Date Seen The patient was seen on 03/18/19. Patient Summary This is a 54 y/o M POD 6 s/p RALP w/ BPLND, w/ postop course complicated by likely aspiration pneumonia and a SBO. He has been on abx for a few days now for pneumonia and is saturating well on room air. His SBO is resolving. He is tolerating clears. Problems (1) Aspiration pneumonia Status: Acute (2) SBO (small bowel obstruction) Status: Acute (3) History of robot-assisted laparoscopic radical prostatectomy Status: Acute Plan/VTE VTE Prophylaxis Ordered?: Yes VTE Exclusion Mechanical Proph: N/A:VTE Prophy Ordered VTE Exclusion Pharmacological: N/A:VTE Prophy Ordered Plan/Urinary Catheter Urinary Catheter: Other Catheter: (catheter to stay in until tomorrow for healing of the vesicourethral anastomosis) Plan - appreciate general surgery recs for SBO - advance diet per general recs - cont treatment of aspiration pneumonia per hospitalist team - appreciate recs - ambulate - SCDs when in bed - SQH - incentive spirometry - catheter to gravity drainage - plan for removal tomorrow - diet per general surgery - patient will be ready for discharge once his diet is advanced by general surgery and he is tolerating it JUANJO CRAIG MD Mar 18, 2019 07:42
[2019-03-18] MEDS: KCL 40MEQ in NS 1000ML 1,000 ML IV SCH ×2 (08:11→16:44)
[2019-03-18] MEDS: lamoTRIgine 100MG TAB PO SCH ×2 (08:11→21:08)
[2019-03-18] MEDS: GABAPENTIN 100 MG CAP PO SCH ×2 (08:11→21:07)
[2019-03-18] MEDS: AUGMENTIN 875 MG TAB PO SCH ×2 (08:11→21:08)
[2019-03-18] MEDS: PANTOPRAZOLE 40MG INJ (PROTONIX) (C9113) IV SCH (08:12)
[2019-03-18] MEDS: DOCUSATE SOD LIQ 100MG/10ML UDC PO SCH ×2 (08:45→21:07)
--- NOTE | 2019-03-18 09:33 | IPN ---
DATE: 03/18/2019 The patient has undergone his prostate surgery and postoperatively developed an ileus and elevated white count for a few days and this has dropped down to normal and continues to decline over the last several days and has been normal within the last 72 hours. In any case, he has been having bowel movements and flatus. He has not had any fevers or chills and does not complain of nausea, vomiting. He had his nasogastric tube removed yesterday despite some persistence of some mild abdominal distension and evidence of bowel obstruction on his x-rays that were seen later in the day. With this, however, he seemed to have continued to do well and was started on some clear liquids last night. He tolerated these last night and this morning and continues to have flatus and bowel movements this morning. PHYSICAL EXAMINATION: His abdomen is softly distended, nontender. He still is mildly tympanitic but without any guarding, rebound or peritoneal signs. IMPRESSION AND PLAN: The patient has evidence of ileus that is resolving and this may be an ileus much more likely then a obstruction and it may also be of partial small bowel obstruction. In any case, he is tolerating clear liquid diet, and I feel that given his mild distension, his x-rays from yesterday afternoon that it would be reasonable to continue him on some clear liquids today and if he tolerates that for 24 hours to start him on a regular diet tomorrow, if he tolerates that then discharge to home with followup on an as needed basis with myself.
--- NOTE | 2019-03-18 11:01 | IPNPDOC ---
Subjective Date Seen The patient was seen on 03/18/19. Subjective Chief Complaint/HPI Eveline is feeling much better, tolerating liquid diet. No complaints of any abdominal pain or nausea, vomiting General: Denies: ROS Unobtainable, Chills, Night Sweats, Fatigue, Malaise, Normal Appetite, Other Symptoms Constitutional: Denies: Chills, Fever, Malaise, Night Sweats, Weakness, Fatigue, Weight Loss, Lethargy, Other Pulmonary: Denies: Dyspnea, Cough, Pleuritic Chest Pain, Other Symptoms Cardiovascular: Denies: Chest Pain, Palpitations, Orthopnea, Paroxysmal Noc. Dyspnea, Edema, Lt Headedness, Other Symptoms Gastrointestinal: Denies: Nausea, Vomiting, Abdominal Pain, Diarrhea, Constipation, Melena, Hematochezia, Other Symptoms Musculoskeletal: Denies: Neck Pain, Back Pain, Shoulder Pain, Arm Pain, Hand Pain, Leg Pain, Foot Pain, Joint Pain, Muscle Pain, Spasms, Other Symptoms Neurological: Denies: Weakness, Numbness, Incoordination, Change in speech, Confusion, Seizures, Other Symptoms Objective Physical Examination General Exam: Positive: Alert, Cooperative Eye Exam: Positive: PERRLA, Conjunctiva & lids normal Chest Exam: Positive: Clear to auscultation Abdomen Exam: Positive: Normal bowel sounds, Soft, Other (, not distended and no tenderness at present) Extremity Exam: Positive: Normal pulses Skin Exam: Positive: Nl turgor and temperature Neuro Exam: Positive: Strength at 5/5 X4 ext, Sensation Intact Assessment /Plan Problems (1) Aspiration pneumonia Status: Acute Problem Text: Patient is clinically improved. His WBC count 4.6 Antibiotics changed to by mouth Augmentin 875 mg by mouth twice a day for 4 more days Patient is clinically improved Possible discharge in a.m. (2) SBO (small bowel obstruction) Status: Acute Problem Text: Progressively resolving Tolerating liquid diet very well, possible change to regular diet tomorrow and discharge home NG tube was DC'd. Madden catheter was DC'd Once cleared by general surgery. He will probably be discharged home by urology (3) History of robot-assisted laparoscopic radical prostatectomy Status: Acute Problem Text: Status post robotic radical prostatectomy Madden in place Further, as per urology Plan/VTE VTE Prophylaxis Ordered?: Yes VTE Exclusion Mechanical Proph: N/A:VTE Prophy Ordered VTE Exclusion Pharmacological: N/A:VTE Prophy Ordered Plan/Urinary Catheter Urinary Catheter: Other Catheter: (catheter to stay in until tomorrow for healing of the vesicourethral anastomosis) VS, I&O, 24H, Fishbone Vital Signs/I&O Vital Signs Date Time Temp Pulse Resp B/P (MAP) Pulse Ox O2 Delivery O2 Flow Rate FiO2 03/18/19 06:00 98.7 71 18 127/77 (94) 96 Room Air 03/15/19 20:05 4.0 I&O- Last 24 Hours up to 6 AM 03/18/19 06:00 Intake Total 2390 ml Output Total 850 ml Balance 1540 ml Laboratory Data 24H LABS Laboratory Tests 2 03/18/19 05:49: Nucleated Red Blood Cells % (auto) 0.0, Anion Gap 6L, Glomerular Filtration Rate > 60.0, Calcium Level 8.4L CBC/BMP Laboratory Tests 03/18/19 05:49 Microbiology Microbiology 03/16/19 Stool Occult Blood (CHARMAINE) - Final, Complete SONNY TEJEDA MD Mar 18, 2019 11:01
[2019-03-18 14:00] VITALS: BP 128/60
[2019-03-18] MEDS ORDERED: MAALOX 30 ML SUSP *UDC PO PRN (15:00)
[2019-03-18 20:00] VITALS: BP 123/77
[2019-03-18] MEDS: traZODone 100 MG TAB PO SCH (21:08)
[2019-03-18] MEDS: PRAVASTATIN 20 MG TAB PO SCH (21:08)
[2019-03-18] MEDS: zolPIDEM TARTRATE 5 MG TAB PO PRN (23:28)
[2019-03-19] MEDS: SIMETHICONE 80 MG CHEW TAB PO SCH ×2 (03:44→09:34)
[2019-03-19] MEDS: HEPARIN SOD (PORCINE) 5000 UNITS/ML VIAL SC SCH ×2 (05:27→14:00)
[2019-03-19 06:00] VITALS: BP 129/76
[2019-03-19 06:21] LABS: HEMATOCRIT 38.3 % (42.0-52.0); HEMOGLOBIN 11.2 g/dl (13.5-17.5); MEAN CORPUSCULAR HEMOGLOBIN 21.4 pg (27.0-33.0); MEAN CORPUSCULAR HGB CONC 29.2 g/dl (32.0-36.5); MEAN CORPUSCULAR VOLUME 73.2 fl (80.0-96.0); PLATELET COUNT, AUTOMATED 199 10^3/uL (150-450); RED BLOOD COUNT 5.23 10^6/uL (4.30-6.10); WHITE BLOOD COUNT 6.1 10^3/uL (4.0-10.0)
[2019-03-19 06:39] LABS: BLOOD UREA NITROGEN 5 MG/DL (7-18); CALCIUM LEVEL 8.6 MG/DL (8.5-10.1); CARBON DIOXIDE LEVEL 23 MEQ/L (21-32); CHLORIDE LEVEL 109 MEQ/L (98-107); CREATININE FOR GFR 0.84 MG/DL (0.70-1.30); GLOMERULAR FILTRATION RATE > 60.0 (>56); GLUCOSE, FASTING 102 MG/DL (70-100); POTASSIUM SERUM 3.6 MEQ/L (3.5-5.1); SODIUM LEVEL 141 MEQ/L (136-145)
--- NOTE | 2019-03-19 07:44 | IPNPDOC ---
Subjective Review oF Systems Chief Complaint The patient is a 54-year-old male admitted with a reason for visit of Prostate Cancer. Events since Last Encounter No acute events o/n. Patient tolerated clears throughout the day yesterday. Denies abd pain. No n/v. Passing flatus. No f/c/ns. Objective Physical Examination General Exam: Alert, Cooperative, No Acute Distress ABDOMEN EXAM: Soft, Other (nondistended; incisions clean/dry/intact); No: Tenderness Skin Exam: Nl turgor and temperature Psych Exam: Mental status NL, Mood NL Other physical findings catheter draining clear urine Vital Signs/I&O Vital Signs Date Time Temp Pulse Resp B/P (MAP) Pulse Ox O2 Delivery O2 Flow Rate FiO2 03/19/19 03:35 65 98 Room Air 03/18/19 20:00 98.2 18 123/77 (92) 03/15/19 20:05 4.0 I&O- Last 24 Hours up to 6 AM 03/19/19 06:00 Intake Total 1932 ml Output Total 900 ml Balance 1032 ml Laboratory Data Labs 24H Laboratory Tests 2 03/19/19 05:50: Nucleated Red Blood Cells % (auto) 0.0, Anion Gap 9, Glomerular Filtration Rate > 60.0, Calcium Level 8.6 CBC/BMP Laboratory Tests 03/19/19 05:50 Microbiology Microbiology 03/16/19 Stool Occult Blood (CHARMAINE) - Final, Complete Assessment/Plan Date Seen The patient was seen on 03/19/19. Patient Summary This is a 54 y/o M POD 7 s/p RALP w/ BPLND, w/ postop course complicated by likely aspiration pneumonia and a SBO. He appears to improving from both aspiration pneumonia and SBO. Problems (1) Aspiration pneumonia Status: Acute (2) SBO (small bowel obstruction) Status: Acute (3) History of robot-assisted laparoscopic radical prostatectomy Status: Acute Plan/VTE VTE Prophylaxis Ordered?: Yes VTE Exclusion Mechanical Proph: N/A:VTE Prophy Ordered VTE Exclusion Pharmacological: N/A:VTE Prophy Ordered Plan/Urinary Catheter Urinary Catheter: D/C Madden Plan - appreciate general surgery recs for SBO - plan to advance to regular diet today - cont treatment of aspiration pneumonia per hospitalist team - appreciate recs - ambulate - SCDs when in bed - SQH - incentive spirometry - d/c catheter - plan discharge home today if he tolerates regular diet JUANJO CRAIG MD Mar 19, 2019 07:44
[2019-03-19] MEDS: DOCUSATE SOD LIQ 100MG/10ML UDC PO SCH (09:34)
[2019-03-19] MEDS: GABAPENTIN 100 MG CAP PO SCH (09:34)
[2019-03-19] MEDS: AUGMENTIN 875 MG TAB PO SCH (09:34)
[2019-03-19] MEDS: PANTOPRAZOLE 40MG INJ (PROTONIX) (C9113) IV SCH (09:34)
[2019-03-19] MEDS: lamoTRIgine 100MG TAB PO SCH (09:34)
--- NOTE | 2019-03-19 10:27 | IPNPDOC ---
Subjective Date Seen The patient was seen on 03/19/19. Subjective Chief Complaint/HPI Patient is comfortable. He was to go home soon. Offers no complaints. No abdominal pain, no nausea, vomiting General: Denies: ROS Unobtainable, Chills, Night Sweats, Fatigue, Malaise, Normal Appetite, Other Symptoms Constitutional: Denies: Chills, Fever, Malaise, Night Sweats, Weakness, Fatigue, Weight Loss, Lethargy, Other Gastrointestinal: Denies: Nausea, Vomiting, Abdominal Pain, Diarrhea, Constipation, Melena, Hematochezia, Other Symptoms Genitourinary: Denies: Dysuria, Frequency, Incontinence, Hematuria, Retention, Other Symptoms Musculoskeletal: Denies: Neck Pain, Back Pain, Shoulder Pain, Arm Pain, Hand Pain, Leg Pain, Foot Pain, Joint Pain, Muscle Pain, Spasms, Other Symptoms Neurological: Denies: Weakness, Numbness, Incoordination, Change in speech, Confusion, Seizures, Other Symptoms Objective Physical Examination General Exam: Positive: Alert, Cooperative Eye Exam: Positive: PERRLA, Conjunctiva & lids normal Chest Exam: Positive: Clear to auscultation Abdomen Exam: Positive: Normal bowel sounds, Soft, Other (, not distended and no tenderness at present) Extremity Exam: Positive: Normal pulses Skin Exam: Positive: Nl turgor and temperature Neuro Exam: Positive: Strength at 5/5 X4 ext, Sensation Intact Assessment /Plan Problems (1) Aspiration pneumonia Status: Acute Problem Text: Patient is clinically improved. His WBC count 4.6 Antibiotics changed to by mouth Augmentin 875 mg by mouth twice a day for 3 more days Patient can be discharged home on by mouth Augmentin for 3 more days (2) SBO (small bowel obstruction) Status: Acute Problem Text: Progressively resolving NG tube was DC'd Madden's catheter was DC'd Patient's diet has been advanced to regular Discharge planning as per urology and surgery (3) History of robot-assisted laparoscopic radical prostatectomy Status: Acute Problem Text: Status post robotic radical prostatectomy Madden in place Further, as per urology Plan/VTE VTE Prophylaxis Ordered?: Yes VTE Exclusion Mechanical Proph: N/A:VTE Prophy Ordered VTE Exclusion Pharmacological: N/A:VTE Prophy Ordered Plan/Urinary Catheter Urinary Catheter: D/C Madden VS, I&O, 24H, Fishbone Vital Signs/I&O Vital Signs Date Time Temp Pulse Resp B/P (MAP) Pulse Ox O2 Delivery O2 Flow Rate FiO2 03/19/19 06:00 97.9 87 18 129/76 (93) 96 Room Air 03/15/19 20:05 4.0 I&O- Last 24 Hours up to 6 AM 03/19/19 06:00 Intake Total 3102 ml Output Total 900 ml Balance 2202 ml Laboratory Data 24H LABS Laboratory Tests 2 03/19/19 05:50: Nucleated Red Blood Cells % (auto) 0.0, Anion Gap 9, Glomerular Filtration Rate > 60.0, Calcium Level 8.6 CBC/BMP Laboratory Tests 03/19/19 05:50 Microbiology Microbiology 03/16/19 Stool Occult Blood (CHARMAINE) - Final, Complete SONNY TEJEDA MD Mar 19, 2019 10:26
--- NOTE | 2019-03-19 10:44 | REP ---
KUB: Two views. HISTORY: Small bowel obstruction. COMPARISON STUDY: March 17, 2019. FINDINGS: Bowel gas pattern has improved significantly since the March 17, 2019 study. There are still two or three loops of moderately dilated small bowel in the central abdomen but these are less dilated and less numerous. There is a paucity of distal bowel gas as before. Old post-traumatic changes are noted in the left pelvis and there are pins in the left proximal femur. IMPRESSION: Improving small bowel obstruction pattern. Electronically Signed by Keven Qiu MD 03/19/2019 12:56 P
[2019-03-19] MEDS: KCL 40MEQ in NS 1000ML 1,000 ML IV SCH (12:13)
[2019-03-19 14:00] VITALS: BP 109/74
[2019-03-19] MEDS ORDERED: AUGM875T28 PO (14:42)
--- NOTE | 2019-03-19 16:19 | DSES ---
DATE OF ADMISSION: 03/12/2019 DATE OF DISCHARGE: 03/19/2019 ADMISSION DIAGNOSIS: Prostate cancer. DISCHARGE DIAGNOSES: 1. Prostate cancer. 2. Aspiration pneumonia. 3. Small bowel obstruction. ADMITTING PHYSICIAN: Ulices Moran MD DISCHARGING PHYSICIAN: Ulices Moran MD PROCEDURES PERFORMED: Robotic assisted laparoscopic radical prostatectomy with bilateral pelvic lymph node dissection on 03/12/2019. HISTORY OF PRESENT ILLNESS: This is a 54-year-old male with prostate cancer who was brought to the hospital for surgery on 03/12/2019. He was admitted to the hospital postoperatively. HOSPITALIZATION COURSE: The patient was admitted to the hospital after undergoing robotic radical prostatectomy with bilateral pelvic lymph node dissection on 03/12/2019. His postoperative course was complicated by persistent nausea and vomiting on postoperative day one from the surgery. He was made nothing by mouth. He was also found to be tachycardic and the hospitalist team evaluated him for this. A CT scan of the chest was done, and it was notable for findings consistent with an aspiration pneumonia and negative for pulmonary embolism. He was then started on antibiotics by the hospitalist team for treatment of aspiration pneumonia. This improved and his oxygen saturation improved. For the nausea and vomiting, x-rays had findings concerning for a small bowel obstruction. General surgery was consulted and a nasogastric tube was inserted. This abdominal distention gradually improved over his hospital stay and he started passing gas and having bowel movements. On postoperative day six, his nasogastric tube was clamped and then removed. He was started on a clear liquid diet on postoperative day 6 and this was slowly advanced to a regular diet on postoperative day seven. By postoperative day seven, he was tolerating a regular diet and was having small bowel movements. He was ambulating well. His pain was well controlled without pain medications at this point. His Khalif-Hassan drain was removed due to low output. His catheter was removed on postoperative day seven. He voided without difficulty. Since he was doing well on postoperative day seven, he was discharged home with the plan for him to complete a few more days of antibiotic for aspiration pneumonia. His pathology results were discussed with him in the hospital. The plan is for him to followup in the clinic in 1 month and he will have a PSA drawn prior to that appointment for monitoring of prostate cancer. KIERRA
== END 2019-03-19 16:00 | disposition home or self-care (01) | DRG 707 ==
LOC: M OR 03-12 06:20 → M MS5PR 03-12 15:45 → M PCU 03-14 11:35 → M MSPAV 03-15 14:25
PROVIDERS: ADMIT Urology; ATTEND Urology
PROC: 07BC4ZX Excision of Pelvis Lymphatic, Percutaneous Endoscopic Approach, Diagnostic (ICD-10-PCS; 2019-03-12)
PROC: 8E0W4CZ Robotic Assisted Procedure of Trunk Region, Percutaneous Endoscopic Approach (ICD-10-PCS; 2019-03-12)
PROC: 30233N1 Transfusion of Nonautologous Red Blood Cells into Peripheral Vein, Percutaneous Approach (ICD-10-PCS; 2019-03-12)
PROC: 0VT04ZZ Resection of Prostate, Percutaneous Endoscopic Approach (ICD-10-PCS; principal; 2019-03-12 08:30)
DX: C61 Malignant neoplasm of prostate (principal); J69.0 Pneumonitis due to inhalation of food and vomit; K56.600 Partial intestinal obstruction, unspecified as to cause; D64.9 Anemia, unspecified; E78.5 Hyperlipidemia, unspecified; F10.10 Alcohol abuse, uncomplicated; J38.00 Paralysis of vocal cords and larynx, unspecified; I25.2 Old myocardial infarction; F32.9 Major depressive disorder, single episode, unspecified; F41.9 Anxiety disorder, unspecified; K21.9 Gastro-esophageal reflux disease without esophagitis; E55.9 Vitamin D deficiency, unspecified; N52.9 Male erectile dysfunction, unspecified; Z79.899 Other long term (current) drug therapy; Z88.5 Allergy status to narcotic agent

== ENCOUNTER → 2019-02-04 | Outpatient (CLI) | payer MEDICARE, MEDICAID | LOC: M LAB 10:20 | PROVIDERS: ATTEND Internal Medicine Gastroenterology | DX: D50.9 Iron deficiency anemia, unspecified (principal) ==

== ENCOUNTER 2019-02-12 10:14 | Day surgery (SDC) | payer MEDICARE, MEDICAID ==
[~2019-02-12] VITALS: Ht 172.7 cm; Wt 85.5 kg
[~2019-02-12 10:14] MED LIST changes: +LIDOCAINE 1% MDV 20ML VIAL SQ PRN; +LR 1,000 ML IV ONE; +NS 1,000 ML IV ONE
[2019-02-12] MEDS ORDERED: fentaNYL 100 MCG/2 ML INJECTION (J3010) As Ordered ONE (12:51)
[2019-02-12] MEDS ORDERED: PROPOFOL 500 MG/50 ML VIAL As Ordered ONE (12:51)
[2019-02-12] MEDS ORDERED: MIDAZOLAM INJ 2 MG/2 ML VIAL (J2250) As Ordered ONE (12:51)
[2019-02-12] MEDS ORDERED: ONDANSETRON 4MG/2ML VIAL (J2405) As Ordered ONE (12:53)
[2019-02-12] MEDS ORDERED: LIDOCAINE 2% INJ 100 MG/5 ML SDV (FOR ANES.) As Ordered ONE (12:53)
[2019-02-12] MEDS ORDERED: dexameTHASONE 4 MG/ML 1ML VIAL (J1100) As Ordered ONE (12:53)
[2019-02-12] MEDS ORDERED: PROPOFOL 200 MG/20 ML VIAL As Ordered ONE ×2 (14:53→15:32)
--- NOTE | 2019-02-12 15:59 | ROOR ---
Patient Name: Hector Perez Procedure Date: 02/12/2019 2:33 PM Date of : 1965 Age: 54 Room: [facility] Gender: Male Note Status: Finalized Procedure: Upper GI endoscopy Indications: Iron deficiency anemia Providers: Luis Fernando GONZALEZ MD Referring MD: Miko Keith Requesting Provider: Medicines: Monitored Anesthesia Care Complications: No immediate complications. Procedure: Pre-Anesthesia Assessment: - The heart rate, respiratory rate, oxygen saturations, blood pressure, adequacy of pulmonary ventilation, and response to care were monitored throughout the procedure. The Endoscope was introduced through the mouth, and advanced to the duodenal bulb. The upper GI endoscopy was accomplished without difficulty. The patient tolerated the procedure well. Findings: There were esophageal mucosal changes consistent with long-segment Tompkins's esophagus present in the lower third of the esophagus. The maximum longitudinal extent of these mucosal changes was 10 cm in length. Mucosa was biopsied with a cold large-capacity forceps for histology randomly at intervals of 2 cm in the lower third of the esophagus and from 24 to 34 cm from the incisors. A total of 5 specimen bottles were sent to pathology. One moderate (circumferential scarring or stenosis; an endoscope may pass) stenosis was found 24 to 25 cm from the incisors. This stenosis measured 1 cm (in length). The stenosis was traversed. Biopsies were taken with a cold forceps for histology. A single 4 mm mucosal nodule was found in the lower third of the esophagus, 26 cm from the incisors. Biopsies were taken with a cold forceps for histology. A large hiatal hernia was present. The entire examined stomach was normal. The examined duodenum was normal. Biopsies for histology were taken with a cold forceps for evaluation of celiac disease. Impression: - Esophageal mucosal changes consistent with long-segment (from 24cm though 34 cm from incisors) Tompkins's esophagus. Biopsied. - Mucosal nodule found in the esophagus (at 26 cm from incisors). Biopsied. - A 1 cm long mild to moderate esophageal stenosis at the proximal end of the barretts mucosa (at 24 cm from incisors). Biopsied. - Esophagus is small caliber overall. - Moderate to Large hiatal hernia. - Otherwise normal stomach. - Normal examined duodenum. Biopsied. Recommendation: - Use Prilosec (omeprazole) 20 mg twice a day indefinitely. - Telephone endoscopist for pathology results in 2 weeks. - (the script was sent to your pharmacy on file) - I note that he is not a good candidate for a pillcam due to generally small caliber esophagus and stenosis. Depending on biopsy results, the small bowel will be assessed via CT enterography or small bowel study. Luis Fernando Gonzalez MD Luis Fernando GONZALEZ MD 02/12/2019 3:58:52 PM Electronically signed by Luis Fernando GONZALEZ MD Number of Addenda: 0 Note Initiated On: 02/12/2019 2:33 PM Estimated Blood Loss: Estimated blood loss: none.
--- NOTE | 2019-02-12 16:02 | ROOR ---
Patient Name: Hector Perez Procedure Date: 02/12/2019 2:34 PM Date of : 1965 Age: 54 Room: Main OR Gender: Male Note Status: Finalized Procedure: Colonoscopy Indications: Iron deficiency anemia Providers: Luis Fernando GONZALEZ MD Referring MD: Miko Keith Requesting Provider: Medicines: Monitored Anesthesia Care Complications: No immediate complications. Procedure: Pre-Anesthesia Assessment: - The heart rate, respiratory rate, oxygen saturations, blood pressure, adequacy of pulmonary ventilation, and response to care were monitored throughout the procedure. The Colonoscope was introduced through the anus and advanced to 10 cm into the ileum. The colonoscopy was performed with difficulty due to inadequate bowel prep. Successful completion of the procedure was aided by lavage. The patient tolerated the procedure well. The quality of the bowel preparation was unsatisfactory and 30 percent obscured. Findings: The perianal and digital rectal examinations were normal. The colon is grossly normal without large tumors or obstructing lesions. Unable to perform adequate detail examination. Small lesions may have been missed. Impression: - Preparation of the colon was unsatisfactory-30 % obscured by retained stool. - The colon is grossly normal without large tumors or obstructing lesions. Unable to perform adequate detail examination. Small lesions may have been missed. - No specimens collected. Recommendation: - Repeat colonoscopy at the next available appointment because the bowel preparation was poor. - My office will call you to reschedule the procedure. Luis Fernando Gonzalez MD Luis Fernando GONZALEZ MD 02/12/2019 4:02:30 PM Electronically signed by Luis Fernando GONZALEZ MD Number of Addenda: 0 Note Initiated On: 02/12/2019 2:34 PM Estimated Blood Loss: Estimated blood loss: none.
[2019-02-12 18:35] VITALS: BP 109/58
== END 2019-02-12 19:10 | disposition home or self-care (01) ==
LOC: M OPP 10:14
PROVIDERS: ATTEND Internal Medicine Gastroenterology
DX: D50.9 Iron deficiency anemia, unspecified (principal); K22.8 Other specified diseases of esophagus; K44.9 Diaphragmatic hernia without obstruction or gangrene; K22.2 Esophageal obstruction; E78.5 Hyperlipidemia, unspecified; K21.9 Gastro-esophageal reflux disease without esophagitis; M19.90 Unspecified osteoarthritis, unspecified site; F41.9 Anxiety disorder, unspecified; F32.9 Major depressive disorder, single episode, unspecified; G47.30 Sleep apnea, unspecified; R06.83 Snoring; C61 Malignant neoplasm of prostate; Z88.5 Allergy status to narcotic agent; Z79.899 Other long term (current) drug therapy
CPT/HCPCS: 43239; 45378; 88305; J1100; J2250; J2405; J3010

== ENCOUNTER → 2019-02-18 | Outpatient (CLI) | payer MEDICARE, MEDICAID ==
[~2019-02-18] MED LIST changes: -LIDOCAINE 1% MDV 20ML VIAL SQ PRN; -LR 1,000 ML IV ONE; -NS 1,000 ML IV ONE; +OMEP-218 PO
[2019-02-18 14:20] LABS: HEMATOCRIT 33.8 % (42.0-52.0); HEMOGLOBIN 9.5 g/dl (13.5-17.5); MEAN CORPUSCULAR HEMOGLOBIN 19.8 pg (27.0-33.0); MEAN CORPUSCULAR HGB CONC 28.1 g/dl (32.0-36.5); MEAN CORPUSCULAR VOLUME 70.6 fl (80.0-96.0); PLATELET COUNT, AUTOMATED 209 10^3/uL (150-450); RED BLOOD COUNT 4.79 10^6/uL (4.30-6.10)
[2019-02-18 14:44] LABS: BLOOD UREA NITROGEN 14 MG/DL (7-18); CARBON DIOXIDE LEVEL 27 MEQ/L (21-32); CHLORIDE LEVEL 105 MEQ/L (98-107); CREATININE FOR GFR 0.89 MG/DL (0.70-1.30); GLOMERULAR FILTRATION RATE > 60.0 (>56); GLUCOSE, FASTING 80 MG/DL (70-100); POTASSIUM SERUM 4.2 MEQ/L (3.5-5.1); SODIUM LEVEL 140 MEQ/L (136-145)
== END ==
LOC: M LAB 13:25
PROVIDERS: ATTEND Urology
DX: C61 Malignant neoplasm of prostate (principal)

== ENCOUNTER → 2019-03-03 | Outpatient (REF) | payer MEDICARE, MEDICAID ==
[~2019-03-03] MED LIST changes: +DOCU100C16 PO; +PERCOCET PO; +SULF1TAB93 PO
== END ==
LOC: M SMT 12:01
PROVIDERS: ATTEND Urology
DX: Z01.818 Encounter for other preprocedural examination (principal); C61 Malignant neoplasm of prostate; N39.0 Urinary tract infection, site not specified

== ENCOUNTER → 2019-03-09 | Outpatient (CLI) | payer MEDICARE, MEDICAID ==
[2019-03-09 13:19] LABS: HEMOGLOBIN 9.2 g/dl (13.5-17.5); MEAN CORPUSCULAR HEMOGLOBIN 20.1 pg (27.0-33.0); MEAN CORPUSCULAR HGB CONC 28.8 g/dl (32.0-36.5); MEAN CORPUSCULAR VOLUME 69.9 fl (80.0-96.0); PLATELET COUNT, AUTOMATED 232 10^3/uL (150-450); RED BLOOD COUNT 4.58 10^6/uL (4.30-6.10); WHITE BLOOD COUNT 14.7 10^3/uL (4.0-10.0)
--- NOTE | 2019-03-09 15:08 | ECGEPIP ---
[facility] Test Date: 2019-03-09 Pat Name: ANDRÉS VALDERRAMA Department: Room: - Gender: Male Building Code Administrator: Kalpesh : 1965 Requested By: JUANJO Hernandez Order Number: [id number] Reading MD: Luis Fernando Li Measurements Intervals [place] Rate: 86 P: 69 TN: 144 QRS: 33 QRSD: 92 T: 20 QT: 346 QTc: 415 Interpretive Statements SINUS RHYTHM WNL No prior ECG available for comparison. Electronically Signed on 03-09-2019 15:07:34 EDT by Luis Fernando Li
== END ==
LOC: M LAB 12:45
PROVIDERS: ATTEND Urology
DX: C61 Malignant neoplasm of prostate (principal); D64.9 Anemia, unspecified

== ENCOUNTER → 2019-04-24 | Outpatient (CLI) | payer MEDICARE, MEDICAID ==
[~2019-04-24] MED LIST changes: +AUGM875T28 PO; +GLUCAGON FOR INJ 1 MG VIAL (J1610) As Ordered ONE; +ISOVUE-370 76% 100ML VIAL (Q9967) As Ordered ONE; +VoLumen 0.1% SUSPENSION 450ML BOTTLE As Ordered ONE
--- NOTE | 2019-04-24 19:14 | REP ---
CT Enterography: With IV and oral contrast. History: Partial intestinal obstruction. Iron deficiency anemia. The patient gives a history of colon carcinoma. The patient is also status post robotic assisted laparoscopic prostatectomy on March 12, 2019 with bilateral pelvic lymph node dissection. Comparison study: May 19, 2018. CT enterography Technique: The patient ingested oral Volumen for PO contrast per protocol. 0.6 mg of intravenous glucagon is administered. 100 ml of Isovue 370 is given intravenously for intravenous contrast. Helical scanning is acquired. Arterial phase and delayed phase imaging was acquired. Thick slab coronal and sagittal MIP images are generated. In addition coronal and sagittal multiplanar re-formation images are generated and reviewed along with axial images. CT enterography findings: There is a sliding type hiatal hernia again noted. The lung bases demonstrate a subtle infiltrate in the left lower lobe and lingula at the left base. This is improved somewhat from March 14, 2019 particularly on the right. There is some chronic change suspected in the left base. No pleural effusion is seen. The liver and spleen are normal in size homogeneous in texture. No adrenal mass is observed. No abnormalities noted in the pancreas or in the gallbladder. Kidneys enhance symmetrically. There are multiple tiny intrarenal calculi bilaterally. These included a 3 mm calculus in the lower pole of the right and a 3 mm calculus in the upper pole on the left. There is a 3 mm calculus at mid pole position on the left and one other left-sided calculus is seen. There are two punctate foci of calcification on the right seen on coronal MPR images. No hydronephrosis or renal mass is seen. No retroperitoneal mass or adenopathy is observed. Normal appendix is seen. Large and small bowel loops are normal in the upper abdomen. There is left colonic diverticulosis without CT evidence of diverticulitis. No colonic mass lesion is seen. I do not see evidence of previous colon resection. Urinary bladder is intact. There are fairly large new bilateral pelvic sidewall low density collections consistent with post lymph node dissection lymphocele. The larger of these is on the left. This measures 7.0 x 4.3 x 7.0 cm. The collection on the right measures 5.2 x 3.4 x 5.3 cm. There is some compression of the urinary bladder by the bilateral pelvic sidewall lymphoceles. No pelvic adenopathy. The external iliac vein segments are somewhat compressed and displaced anteriorly. Maximal intensity projection images show no evidence of abnormal bowel wall enhancement or thickening. No gastrointestinal mass lesion is observed. There is an accessory left renal vein. This drains into the vena cava behind the aorta. Old post-traumatic deformities are again seen in the left pelvis and left sacrum. Impression: Status post robotic assisted laparoscopic prostatectomy with post lymph node dissection lymphoceles along the pelvic sidewalls bilaterally, left greater than right. This produces some compression of the bladder. There is left colonic diverticulosis. Bilateral intrarenal nephrolithiasis. No other gastrointestinal abnormality. Electronically Signed by Keven Qiu MD 04/24/2019 08:04 P
== END ==
LOC: M RAD 11:57
PROVIDERS: ATTEND Internal Medicine Gastroenterology
DX: N20.0 Calculus of kidney (principal); K57.30 Diverticulosis of large intestine without perforation or abscess without bleeding; K56.600 Partial intestinal obstruction, unspecified as to cause
CPT/HCPCS: 74177; J1610; Q9967

== ENCOUNTER → 2019-06-12 | Day surgery (SDC) | payer MEDICARE, MEDICAID ==
[~2019-06-12] VITALS: Ht 175.3 cm; Wt 83.2 kg
[~2019-06-12] MED LIST changes: -GLUCAGON FOR INJ 1 MG VIAL (J1610) As Ordered ONE; -ISOVUE-370 76% 100ML VIAL (Q9967) As Ordered ONE; +LIDOCAINE 2% INJ 100 MG/5 ML SDV (FOR ANES.) As Ordered ONE; +MELA10TA3 PO; +NS 1,000 ML IV ONE; +QUET5TAB PO; -TRAZ-163 PO; +TRAZ-257 PO; -VoLumen 0.1% SUSPENSION 450ML BOTTLE As Ordered ONE; +propofoL 200 MG/20 ML VIAL As Ordered ONE
== END | disposition home or self-care (01) ==
LOC: M OPP 09:57
PROVIDERS: ATTEND Internal Medicine Gastroenterology
DX: D50.9 Iron deficiency anemia, unspecified (principal); Z53.20 Procedure and treatment not carried out because of patient's decision for unspecified reasons

== ENCOUNTER → 2019-06-30 | Outpatient (CLI) | payer MEDICARE, MEDICAID ==
[~2019-06-30] MED LIST changes: -LIDOCAINE 2% INJ 100 MG/5 ML SDV (FOR ANES.) As Ordered ONE; -NS 1,000 ML IV ONE; -propofoL 200 MG/20 ML VIAL As Ordered ONE
[2019-06-30 13:00] LABS: HEMATOCRIT 35.2 % (42.0-52.0); HEMOGLOBIN 10.2 g/dl (13.5-17.5); MEAN CORPUSCULAR HEMOGLOBIN 21.4 pg (27.0-33.0); MEAN CORPUSCULAR VOLUME 73.8 fl (80.0-96.0); PLATELET COUNT, AUTOMATED 248 10^3/uL (150-450); RED BLOOD COUNT 4.77 10^6/uL (4.30-6.10); WHITE BLOOD COUNT 6.6 10^3/uL (4.0-10.0)
== END ==
LOC: M LAB 12:15
PROVIDERS: ATTEND Urology
DX: C61 Malignant neoplasm of prostate (principal); D64.9 Anemia, unspecified

== ENCOUNTER → 2019-07-02 | Outpatient (CLI) | payer MEDICARE, MEDICAID | LOC: M LAB 09:55 | PROVIDERS: ATTEND Urology | DX: C61 Malignant neoplasm of prostate (principal) ==

== ENCOUNTER 2019-08-05 07:32 | Day surgery (SDC) | payer MEDICARE, MEDICAID ==
[~2019-08-05] VITALS: Ht 175.3 cm; Wt 83.9 kg
[~2019-08-05 07:32] MED LIST changes: +ADVI100T PO; +LIDOCAINE 2% INJ 100 MG/5 ML SDV (FOR ANES.) As Ordered ONE; +NS 1,000 ML IV ONE; +propofoL 500 MG/50 ML VIAL As Ordered ONE
[2019-08-05] MEDS ORDERED: fentaNYL 100 MCG/2 ML INJECTION (J3010) As Ordered ONE (09:41)
--- NOTE | 2019-08-05 09:47 | ROOR ---
Patient Name: Hector Perez Procedure Date: 08/05/2019 9:16 AM Date of : 1965 Age: 54 Room: [facility] Gender: Male Note Status: Finalized Procedure: Upper GI endoscopy Indications: Follow-up of Tompkins's esophagus Providers: Luis Fernando GONZALEZ MD Referring MD: LIVE Lobato Requesting Provider: Medicines: Monitored Anesthesia Care Complications: No immediate complications. Procedure: Pre-Anesthesia Assessment: - The heart rate, respiratory rate, oxygen saturations, blood pressure, adequacy of pulmonary ventilation, and response to care were monitored throughout the procedure. The Endoscope was introduced through the mouth, and advanced to the second part of duodenum. The upper GI endoscopy was accomplished without difficulty. The patient tolerated the procedure well. Findings: The esophagus and gastroesophageal junction were examined with white light and narrow band imaging (NBI) from a forward view and retroflexed position. There were esophageal mucosal changes suspicious for long-segment Tompkins's esophagus. These changes involved the mucosa at the upper extent of the gastric folds (35 cm from the incisors) extending to the Z-line (25 cm from the incisors). Circumferential salmon-colored mucosa was present from 25 to 35 cm and nodularity was present at 35 cm. The maximum longitudinal extent of these esophageal mucosal changes was 10 cm in length. Mucosa was biopsied with a cold forceps for histology in 4 quadrants. A total of 4 specimen bottles were sent to pathology. A single 5 mm mucosal nodule with a localized distribution was found at the gastroesophageal junction, 37 cm from the incisors. Biopsies were taken with a cold forceps for histology. A medium-sized hiatal hernia was present. The exam of the stomach was otherwise normal. The examined duodenum was normal. Impression: - Esophageal mucosal changes suspicious for 10 cm long-segment Tompkins's esophagus. Biopsied. - Mucosal nodule found at the GE junction esophagus. Biopsied. - Medium-sized hiatal hernia. - Normal examined duodenum. Recommendation: - Await pathology results. - Use Prilosec (omeprazole) 20 mg PO BID for the rest of the patient's life. Luis Fernando Gonzalez MD Luis Fernando GONZALEZ MD 08/05/2019 9:47:36 AM Electronically signed by Luis Fernando GONZALEZ MD Number of Addenda: 0 Note Initiated On: 08/05/2019 9:16 AM Estimated Blood Loss: Estimated blood loss: none.
--- NOTE | 2019-08-05 10:05 | ROOR ---
Patient Name: Hector Perez Procedure Date: 08/05/2019 9:18 AM Date of : 1965 Age: 54 Room: [facility] Gender: Male Note Status: Finalized Procedure: Colonoscopy Indications: Iron deficiency anemia Providers: Luis Fernando GONZALEZ MD Referring MD: LIVE Lobato Requesting Provider: Medicines: Monitored Anesthesia Care Complications: No immediate complications. Procedure: Pre-Anesthesia Assessment: - The heart rate, respiratory rate, oxygen saturations, blood pressure, adequacy of pulmonary ventilation, and response to care were monitored throughout the procedure. The Colonoscope was introduced through the anus and advanced to 10 cm into the ileum. The colonoscopy was performed without difficulty. The patient tolerated the procedure well. The quality of the bowel preparation was adequate. Findings: The perianal and digital rectal examinations were normal. Internal hemorrhoids were found during retroflexion. The hemorrhoids were moderate. Multiple medium-mouthed diverticula were found in the sigmoid colon. Retroflexion in the right colon was performed. The entire examined colon appeared normal on direct and retroflexion views. The terminal ileum appeared normal. Impression: - Internal hemorrhoids. - Diverticulosis in the sigmoid colon. - The entire colon is otherwise normal on direct and retroflexion views. - The examined portion of the ileum was normal. - No specimens collected. Recommendation: - Return to referring physician as previously scheduled. Luis Fernando Gonzalez MD Luis Fernando GONZALEZ MD 08/05/2019 10:04:39 AM Electronically signed by Luis Fernando GONZALEZ MD Number of Addenda: 0 Note Initiated On: 08/05/2019 9:18 AM Estimated Blood Loss: Estimated blood loss: none.
[2019-08-05 10:45] VITALS: BP 127/72
== END 2019-08-05 14:40 | disposition home or self-care (01) ==
LOC: M OPP 07:32
PROVIDERS: ATTEND Internal Medicine Gastroenterology
DX: D50.9 Iron deficiency anemia, unspecified (principal); K22.70 Barrett's esophagus without dysplasia; D13.0 Benign neoplasm of esophagus; K64.8 Other hemorrhoids; K57.30 Diverticulosis of large intestine without perforation or abscess without bleeding; K22.8 Other specified diseases of esophagus; K44.9 Diaphragmatic hernia without obstruction or gangrene
CPT/HCPCS: 43239; 45378; 88305; J3010

== ENCOUNTER 2022-12-11 09:51 | Emergency (ER) | payer OTHER, MEDICAID ==
[~2022-12-11] VITALS: Ht 185.4 cm; Wt 78.7 kg
[~2022-12-11 09:51] MED LIST changes: +BACTDSTA PO; -LIDOCAINE 2% INJ 100 MG/5 ML SDV (FOR ANES.) As Ordered ONE; -MELA10TA3 PO; +MELA1TAB55 PO; -NS 1,000 ML IV ONE; +OMEP-173 PO; -OMEP-218 PO; +QUET50TA4 PO; -QUET5TAB PO; -SULF1TAB93 PO; -propofoL 500 MG/50 ML VIAL As Ordered ONE
[2022-12-11] MEDS ORDERED: ACETAMINOPHEN 500 MG TAB PO ONE (10:35)
[2022-12-11 14:25] VITALS: BP 112/76; TEMP 97.6; O2SAT 99
== END 2022-12-11 14:25 | disposition home or self-care (01) ==
LOC: M ED 09:51 → EDBD 09:51 → M ED 14:25
DX: S00.81XA Abrasion of other part of head, initial encounter (principal); S63.92XA Sprain of unspecified part of left wrist and hand, initial encounter; W01.0XXA Fall on same level from slipping, tripping and stumbling without subsequent striking against object, initial encounter; Y92.410 Unspecified street and highway as the place of occurrence of the external cause; Y93.01 Activity, walking, marching and hiking; Y99.8 Other external cause status

== ENCOUNTER 2023-07-24 14:49 | Emergency (ER) | payer MEDICARE, MEDICAID ==
[~2023-07-24] VITALS: Ht 185.4 cm; Wt 73.5 kg
[2023-07-24 16:52] VITALS: BP 117/59; TEMP 97.3; O2SAT 99
[2023-07-24] MEDS ORDERED: NAPR-837 PO (18:03)
== END 2023-07-24 18:44 | disposition home or self-care (01) ==
LOC: M ED 14:49
DX: S83.422A Sprain of lateral collateral ligament of left knee, initial encounter (principal); W01.0XXA Fall on same level from slipping, tripping and stumbling without subsequent striking against object, initial encounter; Y92.510 Bank as the place of occurrence of the external cause; Y93.9 Activity, unspecified; Y99.9 Unspecified external cause status; M17.12 Unilateral primary osteoarthritis, left knee; Z79.899 Other long term (current) drug therapy; Z88.5 Allergy status to narcotic agent; Z91.013 Allergy to seafood

== ENCOUNTER 2023-08-07 16:39 | Emergency (ER) | payer MEDICARE, MEDICAID ==
[~2023-08-07] VITALS: Ht 172.7 cm; Wt 68.2 kg
[~2023-08-07 16:39] MED LIST changes: +NAPR-837 PO
[2023-08-07] MEDS: NAPROXEN 250 MG TAB PO ONE (22:30)
[2023-08-07] MEDS ORDERED: NAPR-837 PO (23:43)
[2023-08-08 00:10] VITALS: BP 125/85; TEMP 98.8; O2SAT 97
== END 2023-08-07 23:57 | disposition home or self-care (01) ==
LOC: M ED 16:39
DX: S80.02XA Contusion of left knee, initial encounter (principal); S20.222A Contusion of left back wall of thorax, initial encounter; W10.8XXA Fall (on) (from) other stairs and steps, initial encounter; Y92.512 Supermarket, store or market as the place of occurrence of the external cause; Y93.9 Activity, unspecified; Y99.9 Unspecified external cause status; I10 Essential (primary) hypertension; Z85.46 Personal history of malignant neoplasm of prostate; Z79.899 Other long term (current) drug therapy; Z88.5 Allergy status to narcotic agent; Z91.013 Allergy to seafood

== ENCOUNTER 2023-09-09 20:38 | Emergency (ER) | payer MEDICARE, MEDICAID ==
[~2023-09-09] VITALS: Ht 185.4 cm; Wt 62.3 kg
[2023-09-09 20:54] VITALS: TEMP 98.2
[2023-09-09 21:26] LABS: BASO % 0.8 % (0.0-1.0); EOS # 0.6 10^3/uL (0.0-0.5); EOS % 11.8 % (0.0-3.0); HEMATOCRIT 34.1 % (42.0-52.0); HEMOGLOBIN 10.5 g/dl (13.5-17.5); LYMPH # 0.7 10^3/uL (1.5-5.0); LYMPH % 14.3 % (24.0-44.0); MEAN CORPUSCULAR HEMOGLOBIN 22.2 pg (27.0-33.0); MEAN CORPUSCULAR HGB CONC 30.8 g/dl (32.0-36.5); MEAN CORPUSCULAR VOLUME 72.1 fl (80.0-96.0); MONO # 0.5 10^3/uL (0.0-0.8); MONO % 9.8 % (2.0-8.0); NEUTROPHILS # 3.1 10^3/uL (1.5-8.5); NEUTROPHILS % 63.1 % (36.0-66.0); PLATELET COUNT, AUTOMATED 151 10^3/uL (150-450); RED BLOOD COUNT 4.73 10^6/uL (4.30-6.10); WHITE BLOOD COUNT 4.9 10^3/uL (4.0-10.0)
[2023-09-09 21:34] LABS: ETHYL ALCOHOL (ETHANOL) 0.109 % (0.000-0.010)
[2023-09-09 21:36] LABS: BLOOD UREA NITROGEN 14 MG/DL (9-23); CALCIUM LEVEL 8.3 MG/DL (8.5-10.1); CARBON DIOXIDE LEVEL 21 MMOL/L (20-31); CHLORIDE LEVEL 105 MMOL/L (98-107); CK-MB VALUE MASS < 1.0 NG/ML (<3.6); CPK CREATINE PHOSPHOKINASE 106 U/L (46-171); CREATININE FOR GFR 0.68 MG/DL (0.70-1.30); GLOMERULAR FILTRATION RATE > 60.0 (>56); GLUCOSE, FASTING 76 MG/DL (60-100); MB/CK RELATIVE INDEX 0.94 (< OR =4); POTASSIUM SERUM 3.4 MMOL/L (3.5-5.1); SODIUM LEVEL 139 MMOL/L (136-145)
[2023-09-09 21:40] LABS: THYROID STIMULATING HORMONE 2.345 uIU/ML (0.55-4.78)
[2023-09-09] MEDS: NS 1,000 ML IV ONE (21:45)
[2023-09-09 23:58] LABS: AMPHETAMINES LEVEL URINE NEGATIVE (NEGATIVE); BARBITURATES URINE NEGATIVE (NEGATIVE); BENZODIAZEPINES URINE NEGATIVE (NEGATIVE); CANNABINOIDS URINE NEGATIVE (NEGATIVE); COCAINE METABOLITE URINE NEGATIVE (NEGATIVE); METHADONE URINE NEGATIVE (NEGATIVE); OPIATES URINE NEGATIVE (NEGATIVE); PHENCYCLIDINE URINE NEGATIVE (NEGATIVE)
[2023-09-10 00:01] LABS: CK-MB VALUE MASS 2.7 NG/ML (<3.6)
[2023-09-10 00:04] LABS: MB/CK RELATIVE INDEX 0.96 (< OR =4)
[2023-09-10] MEDS ORDERED: ISOVUE-370 76% 100ML VIAL As Ordered ONE (00:15)
[2023-09-10 02:07] LABS: MB/CK RELATIVE INDEX 0.9 (< OR =4)
[2023-09-10 02:30] VITALS: BP 118/76; O2SAT 98
== END 2023-09-10 02:53 | disposition left against medical advice (07) ==
LOC: M ED 20:38
DX: R55 Syncope and collapse (principal); I49.9 Cardiac arrhythmia, unspecified; I25.2 Old myocardial infarction; F32.A Depression, unspecified; F10.10 Alcohol abuse, uncomplicated; Z91.013 Allergy to seafood; Z88.5 Allergy status to narcotic agent; Z86.79 Personal history of other diseases of the circulatory system; Z79.1 Long term (current) use of non-steroidal anti-inflammatories (NSAID); Z79.899 Other long term (current) drug therapy
CPT/HCPCS: 70450; 71045; 71275; 72125; 80048; 80307; 81001; 82077; 82140; 82550; 82553; 83605; 84439; 84443; 84484; 85025; 93005; 93041; 94760; 96360; 99285; Q9967

== ENCOUNTER 2023-11-27 12:20 | Emergency (ER) | payer MEDICARE, MEDICAID ==
[~2023-11-27] VITALS: Ht 182.9 cm; Wt 72.4 kg
[2023-11-27 12:34] VITALS: TEMP 98.4
[2023-11-27 14:30] VITALS: BP 134/63; O2SAT 97
== END 2023-11-27 15:01 | disposition home or self-care (01) ==
LOC: M ED 12:20 → EDBD 12:20 → M ED 15:01
DX: S13.4XXA Sprain of ligaments of cervical spine, initial encounter (principal); S00.03XA Contusion of scalp, initial encounter; Y92.511 Restaurant or cafe as the place of occurrence of the external cause; Y93.9 Activity, unspecified; Y99.9 Unspecified external cause status; W19.XXXA Unspecified fall, initial encounter; I25.2 Old myocardial infarction; I25.119 Atherosclerotic heart disease of native coronary artery with unspecified angina pectoris; E78.5 Hyperlipidemia, unspecified; F10.10 Alcohol abuse, uncomplicated; Z88.5 Allergy status to narcotic agent; Z91.013 Allergy to seafood; Z79.899 Other long term (current) drug therapy

== ENCOUNTER → 2024-01-30 | Outpatient (REF) | payer MEDICARE, MEDICAID ==
[2024-01-30 17:41] LABS: ALBUMIN 3.7 G/DL (3.2-5.2); ALKALINE PHOSPHATASE 93 U/L (46-116); ALT/SGPT 31 U/L (7.0-40); AST/SGOT 21 U/L (<34); BILIRUBIN,TOTAL 0.4 MG/DL (0.3-1.2); BLOOD UREA NITROGEN 15 MG/DL (9-23); CALCIUM LEVEL 9.5 MG/DL (8.5-10.1); CARBON DIOXIDE LEVEL 26 MMOL/L (20-31); CHLORIDE LEVEL 108 MMOL/L (98-107); CHOLESTEROL LEVEL 192 MG/DL (<200); CHOLESTEROL RISK RATIO 4.23 (<5); CREATININE FOR GFR 0.67 MG/DL (0.70-1.30); GLOMERULAR FILTRATION RATE > 60.0 (>56); GLUCOSE, FASTING 81 MG/DL (60-100); HDL CHOLESTEROL 45.3 MG/DL (>40); LDL CHOLESTEROL 104.7 MG/DL (<100); NON-HDL-C 146.7 MG/DL; POTASSIUM SERUM 4.3 MMOL/L (3.5-5.1); SODIUM LEVEL 139 MMOL/L (136-145); TOTAL PROTEIN 7.1 G/DL (5.7-8.2); TRIGLYCERIDES LEVEL 210 MG/DL (<150)
[2024-01-30 17:42] LABS: THYROID STIMULATING HORMONE 1.485 uIU/ML (0.55-4.78); TOTAL 25(OH) VITAMIN D 37.1 NG/ML (20.0-100.0)
== END ==
LOC: M LAB REF 16:36
PROVIDERS: ATTEND Physician Assistant
DX: E55.9 Vitamin D deficiency, unspecified (principal); F44.89 Other dissociative and conversion disorders; E78.5 Hyperlipidemia, unspecified

== ENCOUNTER 2024-02-10 21:51 | Emergency (ER) | payer MEDICARE, MEDICAID ==
[~2024-02-10] VITALS: Ht 172.7 cm; Wt 73.6 kg
[2024-02-11 06:42] VITALS: BP 123/75; TEMP 98.8; O2SAT 98
== END 2024-02-11 06:47 | disposition home or self-care (01) ==
LOC: M ED 21:51
DX: M79.605 Pain in left leg (principal); Z92.89 Personal history of other medical treatment; I25.2 Old myocardial infarction; Z88.5 Allergy status to narcotic agent; Z91.013 Allergy to seafood; Z79.899 Other long term (current) drug therapy

== ENCOUNTER 2024-02-13 13:29 | Emergency (ER) | payer MEDICARE, MEDICAID ==
[~2024-02-13] VITALS: Ht 182.9 cm; Wt 81.8 kg
[2024-02-13 17:16] VITALS: BP 123/65; TEMP 98.2; O2SAT 100
[2024-02-13] MEDS ORDERED: DICL20GE TP (19:19)
[2024-02-13] MEDS ORDERED: NAPR-885 PO (19:19)
[2024-02-13] MEDS ORDERED: ELIM5CRE2 TOP (19:24)
== END 2024-02-13 19:37 | disposition home or self-care (01) ==
LOC: M ED 13:29 → EDBD 13:29 → M ED 19:37
DX: M25.462 Effusion, left knee (principal); M17.12 Unilateral primary osteoarthritis, left knee; I25.2 Old myocardial infarction; I10 Essential (primary) hypertension; G47.33 Obstructive sleep apnea (adult) (pediatric); F41.9 Anxiety disorder, unspecified; F32.A Depression, unspecified; F12.10 Cannabis abuse, uncomplicated; Z85.46 Personal history of malignant neoplasm of prostate; Z88.5 Allergy status to narcotic agent; Z91.013 Allergy to seafood; Z79.899 Other long term (current) drug therapy

== ENCOUNTER 2024-02-19 21:00 | Emergency (ER) | payer MEDICARE, MEDICAID ==
[~2024-02-19] VITALS: Ht 203.2 cm; Wt 86.4 kg
[~2024-02-19 21:00] MED LIST changes: +DICL20GE TP; +ELIM5CRE2 TOP; +NAPR-885 PO
[2024-02-20 04:12] VITALS: BP 155/98; TEMP 97.6; O2SAT 97
== END 2024-02-20 04:08 | disposition left against medical advice (07) ==
LOC: M ED 21:00
DX: Z53.21 Procedure and treatment not carried out due to patient leaving prior to being seen by health care provider (principal)

== ENCOUNTER 2024-03-27 15:00 | Emergency (ER) | payer MEDICARE, MEDICAID ==
[~2024-03-27] VITALS: Ht 188 cm; Wt 77.3 kg
[~2024-03-27 15:00] MED LIST changes: -CYCL5TAB PO; +CYCL5TAB4 PO
[2024-03-27 16:39] LABS: BASO % 0.3 % (0.0-1.0); EOS # 0.1 10^3/uL (0.0-0.5); EOS % 0.7 % (0.0-3.0); HEMATOCRIT 36.1 % (42.0-52.0); HEMOGLOBIN 11.3 g/dl (13.5-17.5); LYMPH # 0.7 10^3/uL (1.5-5.0); LYMPH % 4.8 % (24.0-44.0); MEAN CORPUSCULAR HEMOGLOBIN 23.8 pg (27.0-33.0); MEAN CORPUSCULAR HGB CONC 31.3 g/dl (32.0-36.5); MONO # 0.6 10^3/uL (0.0-0.8); NEUTROPHILS # 12.9 10^3/uL (1.5-8.5); NEUTROPHILS % 89.5 % (36.0-66.0); PLATELET COUNT, AUTOMATED 352 10^3/uL (150-450); RED BLOOD COUNT 4.75 10^6/uL (4.30-6.10); WHITE BLOOD COUNT 14.4 10^3/uL (4.0-10.0)
[2024-03-27 16:54] LABS: BLOOD UREA NITROGEN 18 MG/DL (9-23); CALCIUM LEVEL 8.9 MG/DL (8.5-10.1); CARBON DIOXIDE LEVEL 28 MMOL/L (20-31); CHLORIDE LEVEL 102 MMOL/L (98-107); GLOMERULAR FILTRATION RATE > 60.0 (>56); GLUCOSE, FASTING 112 MG/DL (60-100); POTASSIUM SERUM 4.1 MMOL/L (3.5-5.1); SODIUM LEVEL 136 MMOL/L (136-145)
[2024-03-27 17:21] LABS: INR 1.17; PARTIAL THROMBOPLASTIN TIME 35.4 SECONDS (24.8-34.2); PROTHROMBIN TIME 15.2 SECONDS (12.5-14.5)
[2024-03-27] MEDS ORDERED: ISOVUE-370 76% 100ML VIAL As Ordered ONE (18:17)
[2024-03-27 18:47] LABS: ETHYL ALCOHOL (ETHANOL) 0.004 % (0.000-0.010); LIPASE 28 U/L (12-53)
[2024-03-27 19:37] LABS: AMPHETAMINES LEVEL URINE NEGATIVE (NEGATIVE); BARBITURATES URINE NEGATIVE (NEGATIVE); BENZODIAZEPINES URINE NEGATIVE (NEGATIVE); COCAINE METABOLITE URINE NEGATIVE (NEGATIVE); METHADONE URINE NEGATIVE (NEGATIVE); OPIATES URINE NEGATIVE (NEGATIVE)
[2024-03-27 19:38] LABS: CANNABINOIDS URINE NEGATIVE (NEGATIVE); PHENCYCLIDINE URINE NEGATIVE (NEGATIVE)
[2024-03-28] MEDS: PIPERACILLIN/TAZOBACTAM SOD 3.375 GM in DEXTROSE 5% (D5W) ADV/MINI-BAG 50 ML IV ONE (01:00)
[2024-03-28] MEDS ORDERED: PIPERACILLIN/TAZOBACTAM SOD 3.375 GM in DEXTROSE 5% (D5W) ADV/MINI-BAG 50 ML IV SCH (04:15)
[2024-03-28] MEDS: PIPERACILLIN/TAZOBACTAM SOD 3.375 GM in DEXTROSE 5% (D5W) ADV/MINI-BAG 50 ML IV SCH (06:02)
[2024-03-28] MEDS ORDERED: SERT50TA29 (08:09)
[2024-03-28] MEDS ORDERED: TRAZ-252 (08:09)
[2024-03-28] MEDS: ALPRAZolam 0.5 MG TAB PO ONE (09:00)
[2024-03-28 10:45] VITALS: BP 110/58; TEMP 99.7; O2SAT 98
== END 2024-03-28 10:48 | disposition short-term general hospital (02) ==
LOC: M ED 15:00 → EDBD 15:00 → M ED 03-28 10:48
DX: K65.1 Peritoneal abscess (principal); I25.2 Old myocardial infarction; I10 Essential (primary) hypertension; K64.8 Other hemorrhoids; F12.10 Cannabis abuse, uncomplicated; Z88.5 Allergy status to narcotic agent; Z91.013 Allergy to seafood; Z79.899 Other long term (current) drug therapy
CPT/HCPCS: 74177; 80048; 80307; 81001; 82077; 83605; 83690; 83735; 85025; 85610; 85730; 86850; 86870; 86900; 86901; 93005; 96365; 99284; J2543; Q9967

== ENCOUNTER → 2024-05-28 | Outpatient (REF) | payer MEDICARE, MEDICAID ==
[~2024-05-28] MED LIST changes: +SERT50TA29; +TRAZ-252
[2024-05-28 13:36] LABS: BASO # 0.1 10^3/uL (0.0-0.2); BASO % 0.8 % (0.0-1.0); EOS # 0.2 10^3/uL (0.0-0.5); EOS % 3.4 % (0.0-3.0); HEMATOCRIT 39.4 % (42.0-52.0); HEMOGLOBIN 11.8 g/dl (13.5-17.5); LYMPH # 0.9 10^3/uL (1.5-5.0); LYMPH % 14.8 % (24.0-44.0); MEAN CORPUSCULAR HEMOGLOBIN 22.1 pg (27.0-33.0); MEAN CORPUSCULAR HGB CONC 29.9 g/dl (32.0-36.5); MEAN CORPUSCULAR VOLUME 73.9 fl (80.0-96.0); MONO # 0.4 10^3/uL (0.0-0.8); MONO % 6.4 % (2.0-8.0); NEUTROPHILS # 4.5 10^3/uL (1.5-8.5); NEUTROPHILS % 73.9 % (36.0-66.0); PLATELET COUNT, AUTOMATED 293 10^3/uL (150-450); RED BLOOD COUNT 5.33 10^6/uL (4.30-6.10); WHITE BLOOD COUNT 6.1 10^3/uL (4.0-10.0)
[2024-05-28 13:54] LABS: BLOOD UREA NITROGEN 20 MG/DL (9-23); CALCIUM LEVEL 8.9 MG/DL (8.5-10.1); CARBON DIOXIDE LEVEL 27 MMOL/L (20-31); CHLORIDE LEVEL 105 MMOL/L (98-107); CREATININE FOR GFR 0.54 MG/DL (0.70-1.30); GLOMERULAR FILTRATION RATE > 60.0 (>56); GLUCOSE, FASTING 82 MG/DL (60-100); POTASSIUM SERUM 4.5 MMOL/L (3.5-5.1); SODIUM LEVEL 140 MMOL/L (136-145)
== END ==
LOC: M LAB REF 12:29
PROVIDERS: ATTEND Physician Assistant
DX: K65.1 Peritoneal abscess (principal)

== ENCOUNTER 2024-08-19 22:47 | Emergency (ER) | payer MEDICARE, MEDICAID ==
[~2024-08-19] VITALS: Ht 175.3 cm; Wt 79.9 kg
[~2024-08-19 22:47] MED LIST changes: -ELIM5CRE2 TOP; -FLOM0.4C39 PO; +PERM60CR8 TOP; +TAMS-18 PO
[2024-08-20 00:19] VITALS: TEMP 97.1
[2024-08-20 00:29] LABS: LIPASE 44 U/L (12-53)
[2024-08-20 00:31] LABS: ALBUMIN 3.6 G/DL (3.2-5.2); ALKALINE PHOSPHATASE 88 U/L (40-129); ALT/SGPT 20 U/L (7.0-40); AST/SGOT 17 U/L (<34); BILIRUBIN,DIRECT < 0.1 MG/DL (<0.4); BILIRUBIN,TOTAL 0.3 MG/DL (0.3-1.2); BLOOD UREA NITROGEN 19 MG/DL (9-23); CARBON DIOXIDE LEVEL 28 MMOL/L (20-31); CHLORIDE LEVEL 105 MMOL/L (98-107); CREATININE FOR GFR 0.66 MG/DL (0.70-1.30); GLOMERULAR FILTRATION RATE > 90.0 (>56); GLUCOSE, FASTING 99 MG/DL (60-100); POTASSIUM SERUM 4.3 MMOL/L (3.5-5.1); SODIUM LEVEL 141 MMOL/L (136-145); TOTAL PROTEIN 7.3 G/DL (5.7-8.2)
[2024-08-20 01:32] LABS: BASO # 0.1 10^3/uL (0.0-0.2); BASO % 0.9 % (0.0-1.0); EOS # 0.4 10^3/uL (0.0-0.5); EOS % 4.7 % (0.0-3.0); HEMATOCRIT 37.3 % (42.0-52.0); HEMOGLOBIN 11.2 g/dl (13.5-17.5); LYMPH # 1.1 10^3/uL (1.5-5.0); LYMPH % 13.5 % (24.0-44.0); MONO # 0.5 10^3/uL (0.0-0.8); MONO % 6.4 % (2.0-8.0); NEUTROPHILS # 5.8 10^3/uL (1.5-8.5); NEUTROPHILS % 73.7 % (36.0-66.0); PLATELET COUNT, AUTOMATED 190 10^3/uL (150-450); RED BLOOD COUNT 5.33 10^6/uL (4.30-6.10); WHITE BLOOD COUNT 7.9 10^3/uL (4.0-10.0)
[2024-08-20] MEDS: ONDANSETRON 4MG 2ML VIAL IV ONE (02:01)
[2024-08-20] MEDS: KETOROLAC 30 MG/ML 1ML VIAL IV ONE (02:02)
[2024-08-20] MEDS ORDERED: ISOVUE-370 76% 100ML VIAL As Ordered ONE (02:41)
[2024-08-20 05:30] VITALS: BP 118/71; O2SAT 97
== END 2024-08-20 05:50 | disposition home or self-care (01) ==
LOC: M ED 22:47
DX: R10.9 Unspecified abdominal pain (principal); Z85.46 Personal history of malignant neoplasm of prostate; Z88.5 Allergy status to narcotic agent; Z91.013 Allergy to seafood; Z79.899 Other long term (current) drug therapy
CPT/HCPCS: 74177; 80048; 80076; 83690; 85025; 96374; 96375; 99284; J1885; J2405; Q9967

== ENCOUNTER → 2024-11-11 | Outpatient (REF) | payer MEDICARE, MEDICAID ==
[~2024-11-11] MED LIST changes: +LIDO1ADH93 TOP; -LIDO5DIS41 TOP; -PRAV80TA2 PO; +PRAV80TA75 PO
== END ==
LOC: M LAB REF 12:07
PROVIDERS: ATTEND Physician Assistant
DX: R06.02 Shortness of breath (principal)